=== PATIENT | female | born 1970 | race Caucasian/White ===

== ENCOUNTER → 2016-04-27 | Outpatient (CLI) | payer OTHER ==
[~2016-04-27] MED LIST: LITH300C PO; NO HOME MEDICATIONS
[2016-04-27 11:01] LABS: FREE T4 0.97 NG/DL (0.76-1.46)
[2016-04-27 11:02] LABS: LITHIUM LEVEL 1.28 MEQ/L (0.60-1.20)
== END | disposition home or self-care (01) ==
LOC: M LAB 09:21
PROVIDERS: ATTEND Nurse Practitioner Psychiatric/Mental Health
DX: Z51.81 Encounter for therapeutic drug level monitoring (principal); Z79.899 Other long term (current) drug therapy

== ENCOUNTER 2016-09-15 17:09 | Emergency (ER) | payer OTHER ==
[~2016-09-15] VITALS: Ht 157.5 cm; Wt 108.9 kg
[2016-09-15] MEDS ORDERED: METO-207 (17:24)
[2016-09-15] MEDS ORDERED: QUET1TAB7 (17:24)
[2016-09-15] MEDS ORDERED: VITA50003 (17:25)
[2016-09-15] MEDS ORDERED: TRIA1CR (17:25)
[2016-09-15] MEDS ORDERED: GABA-282 (17:25)
[2016-09-15] MEDS ORDERED: CITA40TA4 (17:25)
[2016-09-15] MEDS ORDERED: LEVO50TA5 (17:25)
[2016-09-15] MEDS ORDERED: LITH600C (17:25)
[2016-09-15] MEDS ORDERED: LITH150C (17:25)
[2016-09-15 18:30] LABS: BASO % 0.3 % (0.0-1.0); EOS # 0.4 K/mm3 (0.0-0.50); EOS % 3.6 % (0.0-3.0); LARGE UNSTAINED CELL # 0.2 K/mm3 (0.0-0.4); LARGE UNSTAINED CELL % 1.6 % (0.0-4.0); LYMPH # 2.2 K/mm3 (1.5-4.5); LYMPH % 19.2 % (24.0-44.0); MEAN CORPUSCULAR HGB CONC 33.3 g/dl (32.0-36.5); MEAN CORPUSCULAR VOLUME 87.1 fl (80.0-96.0); MONO # 0.5 K/mm3 (0.0-0.8); MONO % 4.8 % (0.0-5.0); NEUTROPHILS # 7.4 K/mm3 (1.8-7.7); NEUTROPHILS % 70.6 % (36.0-66.0); PLATELET COUNT, AUTOMATED 315 k/mm3 (150-450); RED CELL DISTRIBUTION WIDTH 13.1 % (11.5-14.5); WHITE BLOOD COUNT 10.5 K/mm3 (4.0-10.0)
[2016-09-15] MEDS ORDERED: PANTOPRAZOLE 40MG TAB (PROTONIX) PO ONE (18:30)
[2016-09-15] MEDS ORDERED: ONDANSETRON 4MG/2ML VIAL (J2405) IV ONE (18:30)
[2016-09-15] MEDS ORDERED: NS 500 ML IV ONE (18:30)
[2016-09-15 18:38] LABS: ALBUMIN 3.8 GM/DL (3.2-5.2); ALBUMIN/GLOBULIN RATIO 0.97 (1.00-1.93); ALKALINE PHOSPHATASE 77 U/L (45-117); ALT/SGPT 33 U/L (12-78); ANION GAP 6 MEQ/L (8-16); AST/SGOT 24 U/L (15-37); BILIRUBIN,DIRECT 0.2 MG/DL (0.0-0.2); BILIRUBIN,TOTAL 0.9 MG/DL (0.2-1.0); BLOOD UREA NITROGEN 11 MG/DL (7-18); CALCIUM LEVEL 9.1 MG/DL (8.5-10.1); CARBON DIOXIDE LEVEL 26 MEQ/L (21-32); CHLORIDE LEVEL 106 MEQ/L (98-107); CREATININE FOR GFR 0.88 MG/DL (0.55-1.02); GLOMERULAR FILTRATION RATE > 60.0 (>58); GLUCOSE, FASTING 102 MG/DL (70-105); POTASSIUM SERUM 3.7 MEQ/L (3.5-5.1); SODIUM LEVEL 138 MEQ/L (136-145); TOTAL PROTEIN 7.7 GM/DL (6.4-8.2)
[2016-09-15] MEDS ORDERED: ISOVUE-370 76% 100ML VIAL (Q9967) As Ordered ONE (18:39)
[2016-09-15] MEDS ORDERED: MORPHINE 4 MG/ML 1ML SYRINGE IV ONE (18:45)
--- NOTE | 2016-09-15 19:08 | REP ---
Chest one-view HISTORY: Chest pain Comparison: 11/27/2015 The lungs are clear. The heart is normal in size. The pulmonary vasculature is normal in appearance. Impression: No acute disease. Signed by Elvis Khan MD 09/15/2016 06:59 P
--- NOTE | 2016-09-15 19:10 | REPUSA ---
History: R/o PE. Comparison: No prior CTA of the chest available Technique: A CT-pulmonary angiogram was performed. A dose of intravenous contrast was administered. A xial images were displayed, as were sagittal and coronal reconstructions. A 3-D model was also render ed. Exam DLP: Findings: No CT evidence of pulmonary embolism is identified. There is no evidence of thoracic aortic aneurysm or dissection. No air space consolidation is identified in the lungs. There is no evidence of pulmonary edema. No pa thologically enlarged hilar or mediastinal lymph nodes are identified. No significant pleural or judy cardial fluid collection is seen. There is no evidence of pneumothorax. Mild degenerative changes are noted in the spine. The included portion of the upper abdomen does not show significant abnormality. Impression: No evidence of pulmonary embolism is identified.
[2016-09-15] MEDS ORDERED: KETOROLAC 30 MG/ML VIAL (J1885) IV ONE (19:30)
[2016-09-15 21:09] VITALS: BP 139/80
--- NOTE | 2016-09-16 08:22 | ECGEPIP ---
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
--- NOTE | 2016-09-16 08:23 | ECGEPIP ---
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
== END 2016-09-15 21:37 | disposition home or self-care (01) ==
LOC: M ED 18:11
DX: R07.9 Chest pain, unspecified (principal); M54.9 Dorsalgia, unspecified; I10 Essential (primary) hypertension; G62.9 Polyneuropathy, unspecified; M47.9 Spondylosis, unspecified; M17.0 Bilateral primary osteoarthritis of knee; M16.0 Bilateral primary osteoarthritis of hip; Z79.899 Other long term (current) drug therapy; Z88.0 Allergy status to penicillin; Z88.8 Allergy status to other drugs, medicaments and biological substances

== ENCOUNTER → 2016-10-27 | Outpatient (REF) | payer OTHER ==
[~2016-10-27] MED LIST changes: +CITA40TA4; +GABA-282; +LEVO50TA5; +LITH150C; +LITH600C; +METO1TAB7; +QUET1TAB7; +TRIA1CR; +VITA1CAP40
[2016-10-27 12:17] LABS: ALBUMIN 3.6 GM/DL (3.2-5.2); ALBUMIN/GLOBULIN RATIO 1.03 (1.00-1.93); ALKALINE PHOSPHATASE 70 U/L (45-117); ALT/SGPT 21 U/L (12-78); ANION GAP 7 MEQ/L (8-16); AST/SGOT 12 U/L (15-37); BILIRUBIN,TOTAL 0.4 MG/DL (0.2-1.0); BLOOD UREA NITROGEN 20 MG/DL (7-18); CALCIUM LEVEL 9.2 MG/DL (8.5-10.1); CARBON DIOXIDE LEVEL 26 MEQ/L (21-32); CHLORIDE LEVEL 106 MEQ/L (98-107); CHOLESTEROL LEVEL 139 MG/DL (<200); CREATININE FOR GFR 0.97 MG/DL (0.55-1.02); FREE T4 1.12 NG/DL (0.76-1.46); GLOMERULAR FILTRATION RATE > 60.0 (>58); GLUCOSE, FASTING 105 MG/DL (70-105); POTASSIUM SERUM 4.5 MEQ/L (3.5-5.1); SODIUM LEVEL 139 MEQ/L (136-145); TOTAL PROTEIN 7.1 GM/DL (6.4-8.2); TRIGLYCERIDES LEVEL 129 MG/DL (<150)
== END ==
LOC: M SFHCPLAZ 10:02
PROVIDERS: ATTEND Family Medicine
DX: I10 Essential (primary) hypertension (principal); E03.9 Hypothyroidism, unspecified

== ENCOUNTER → 2016-11-19 | Outpatient (CLI) | payer OTHER ==
--- NOTE | 2016-11-22 08:40 | REP ---
MRI lumbar spine without contrast: History: Right lumbar radiculopathy. No known injury. Back pain and right lower extremity pain. Comparison lumbar spine radiographs are from March 20, 2004. Technique: Sagittal and axial T1 and T2-weighted scans are acquired in the usual fashion with and without fat saturation. Sequences include spin echo, turbo spin-echo, and STIR imaging sequences. MRI findings: No extra spinal abnormality is seen. Lumbar vertebral body heights are preserved. Cortical and medullary bone signal intensity are normal. There are mild degenerative disc changes at L3-4, L1-2, and T12-L1 and T11-T12. The conus medullaris terminates at T12-L1 and is unremarkable. Normal caliber aorta is seen. Axial and sagittal images at L1-2, L2-3, L3-4 show no significant abnormality. At L4-5, there is moderate bilateral osteoarthritic facet hypertrophy. No disc herniation or central canal stenosis is seen. No neural foraminal encroachment. At L5-S1, there is also moderate bilateral facet osteoarthritis. No other finding. Impression: Bilateral facet joint osteoarthritis and L4-5 and L5-S1. Minimal degenerative disc changes in the upper lumbar spine. Otherwise negative. Signed by Aaron Mars MD 11/22/2016 10:15 A
== END ==
LOC: M RAD 17:52
PROVIDERS: ATTEND Family Medicine
DX: M54.16 Radiculopathy, lumbar region (principal); M43.06 Spondylolysis, lumbar region; M43.07 Spondylolysis, lumbosacral region; M51.36 Other intervertebral disc degeneration, lumbar region

== ENCOUNTER → 2016-12-20 | Outpatient (REF) | payer OTHER ==
[2016-12-23 14:17] LABS: BENZODIAZEPINES, URINE SCREEN Negative ng/mL (Cutoff=200); METHADONE, URINE SCREEN Negative ng/mL (Cutoff=300); pH, URINE 5.2 (4.5-8.9)
== END ==
LOC: M SFHCPLAZ 02:00
PROVIDERS: ATTEND Family Medicine
DX: Z51.81 Encounter for therapeutic drug level monitoring (principal); Z79.899 Other long term (current) drug therapy

== ENCOUNTER 2017-02-27 04:46 | Inpatient (IN) | payer OTHER, SELFPAY ==
[~2017-02-27] VITALS: Ht 160 cm; Wt 123.6 kg
[2017-02-27] MEDS ORDERED: ONDANSETRON 4MG/2ML VIAL (J2405) IV ONE (05:15)
[2017-02-27] MEDS ORDERED: NS 1,000 ML IV ONE (05:15)
[2017-02-27] MEDS: MORPHINE 4 MG/ML 1ML SYRINGE IV PRN ×2 (05:30→07:18)
[2017-02-27 06:04] LABS: ALBUMIN 3.7 GM/DL (3.2-5.2); ALBUMIN/GLOBULIN RATIO 1.06 (1.00-1.93); ALKALINE PHOSPHATASE 69 U/L (45-117); ALT/SGPT 37 U/L (12-78); ANION GAP 10 MEQ/L (8-16); AST/SGOT 28 U/L (7-37); BILIRUBIN,DIRECT 0.1 MG/DL (0.0-0.2); BILIRUBIN,TOTAL 0.5 MG/DL (0.2-1.0); BLOOD UREA NITROGEN 12 MG/DL (7-18); CARBON DIOXIDE LEVEL 22 MEQ/L (21-32); CHLORIDE LEVEL 109 MEQ/L (98-107); CREATININE FOR GFR 1.09 MG/DL (0.55-1.02); GLUCOSE, FASTING 136 MG/DL (70-105); POTASSIUM SERUM 4.3 MEQ/L (3.5-5.1); SODIUM LEVEL 141 MEQ/L (136-145); TOTAL PROTEIN 7.2 GM/DL (6.4-8.2)
[2017-02-27 06:10] LABS: BASO % 0.3 % (0.0-1.0); EOS # 0.4 10^3/uL (0.0-0.50); EOS % 4.2 % (0.0-3.0); IMMATURE GRANULOCYTE % 0.6 % (0-0); LYMPH # 1.7 10^3/uL (1.5-4.5); LYMPH % 17.5 % (24.0-44.0); MEAN CORPUSCULAR HEMOGLOBIN 28.8 pg (27.0-33.0); MEAN CORPUSCULAR VOLUME 87.3 fl (80.0-96.0); MONO # 0.6 10^3/uL (0.0-0.8); MONO % 5.6 % (0.0-5.0); NEUTROPHILS % 71.8 % (36.0-66.0); PLATELET COUNT, AUTOMATED 264 10^3/uL (150-450); RED CELL DISTRIBUTION WIDTH 12.8 % (11.5-14.5); WHITE BLOOD COUNT 9.8 10^3/uL (4.0-10.0)
[2017-02-27] MEDS ORDERED: ISOVUE-370 76% 100ML VIAL (Q9967) As Ordered ONE (06:17)
[2017-02-27 06:18] LABS: LITHIUM LEVEL 0.57 MEQ/L (0.60-1.20)
[2017-02-27] MEDS ORDERED: NITROGLYCERIN 0.4 MG SUBL TABLET SL PRN (06:30)
[2017-02-27] MEDS ORDERED: ASPIRIN 81 MG CHEW TABLET PO ONE (06:30)
--- NOTE | 2017-02-27 08:00 | REPUSA ---
CLINICAL HISTORY: Abdominal pain. TECHNIQUE: Multiple axial, sagittal and coronal CT images were obtained through the abdomen and pelvi s after administration of intravenous contrast material. COMMENTS: The liver is moderately enlarged with decreased attenuation without mass or defect. There is no intra or extrahepatic biliary ductal dilatation. The spleen is normal. The gallbladder is significantly di stended secondary to impacted stone in its neck. Diffuse thickening, enhancement of the wall of the g allbladder with surrounding inflammatory fat stranding. The pancreas is of normal contour and attenua tion characteristics. There is no evidence of adrenal mass. Both kidneys demonstrate prompt and equal nephrograms. The kidneys are normal in size, shape and conf iguration. There is no evidence of renal or ureteral mass. No renal or ureteral calculi are identifie d. There is no hydroureter or hydronephrosis. No evidence for appendicitis. There is no bowel wall thickening. No evidence for small or large heriberto l obstruction. There is no evidence of abdominal ascites or lymphadenopathy. Thickened bladder. There is no evidence of intrinsic or extrinsic bladder mass. There is no pelvic ascites or lymphadeno jamil. Images of the lung bases show no evidence of pleural or parenchymal mass. There are no pleural effusi ons. The bony structures are free of lytic or blastic lesions. IMPRESSION: Hepatomegaly with fatty infiltration. Acute calculus cholecystitis. Secondary impingement on the adjacent aspect of the first portion of the duodenum. Findings are secon luiza to the significant distention of the gallbladder and edema of its wall/impacted stone at its nec k. No associated fistula between the duodenum and the inflamed gallbladder. Diffusely thickened bladder, probably cystitis. Thank you for your kind referral of this patient.
--- NOTE | 2017-02-27 08:00 | REPUSA ---
CLINICAL HISTORY: Pain, exclude PE. TECHNIQUE: Multiple incremental axial, coronal and oblique images are obtained from the thoracic inle t to the upper abdomen. Intravenous contrast material was administered as per pulmonary embolism prot ocol. COMMENTS: The heart is moderately enlarged. Bilateral multifocal air trapping in the lung bases. There is excellent opacification of pulmonary arterial system without evidence for pulmonary embolism . Aorta is of normal caliber without evidence for dissection or aneurysm. There is no evidence of pleural or parenchymal mass. There are no pleural effusions. There is no evid ence of hilar or mediastinal lymphadenopathy. Images of the upper abdomen demonstrate no evidence of adrenal mass. The bony structures are free of lytic or blastic lesions. IMPRESSION: No evidence for pulmonary embolism. Cardiomegaly. Bilateral multifocal air trapping in the lung bases. Thank you for your kind referral of this patient.
[2017-02-27] MEDS ORDERED: MORPHINE 2 MG/ML 1ML SYRINGE IV ONE (09:00)
[2017-02-27] MEDS ORDERED: DRIS50002 PO (09:58)
[2017-02-27] MEDS ORDERED: METO1TAB33 PO (09:58)
[2017-02-27] MEDS ORDERED: LEVO50TA45 PO (09:58)
[2017-02-27] MEDS ORDERED: LITH150C PO (09:58)
[2017-02-27] MEDS ORDERED: QUET1TAB7 PO (09:58)
[2017-02-27] MEDS ORDERED: LITH300T2 PO (09:58)
[2017-02-27] MEDS ORDERED: GABA-282 PO (09:58)
[2017-02-27] MEDS ORDERED: CELE40TA PO (09:58)
--- NOTE | 2017-02-27 10:23 | REP ---
RIGHT UPPER QUADRANT ULTRASOUND: Real-time sonographic evaluation of the right upper quadrant performed. Gallbladder is distended and there is a 2.3 cm gallstone lodged in the neck of the gallbladder which is not mobile. There is no significant gallbladder wall thickening. No pericholecystic fluid is seen. The common bile duct could not be visualized. No gross intrahepatic biliary dilatation is seen. There appears to be diffuse fibrofatty infiltration of the liver, limiting evaluation for underlying mass. Pancreas could not be visualized due to overlying bowel gas. Right kidney demonstrates no hydronephrosis or nephrolithiasis with normal size at 13.6 cm in length. IMPRESSION: Moderate distended gallbladder with a 2.3 cm gallstone lodged in the neck of the gallbladder, non-mobile. No gallbladder wall thickening or free fluid. Common bile duct could not be visualized. Signed by Rafael Hemphill MD 02/27/2017 05:30 P
[2017-02-27] MEDS ORDERED: ONDANSETRON 4MG/2ML VIAL (J2405) IV PRN (10:30)
[2017-02-27] MEDS ORDERED: MORPHINE 4 MG/ML 1ML SYRINGE IV ONE (10:30)
[2017-02-27] MEDS ORDERED: MOM 30ML SUSPENSION UDC PO PRN (10:30)
[2017-02-27] MEDS ORDERED: MORPHINE 2 MG/ML 1ML SYRINGE IV PRN (10:30)
[2017-02-27] MEDS ORDERED: ACETAMINOPHEN TAB 650MG DOSE (2X325MG) PO PRN (10:30)
[2017-02-27] MEDS: LR 1,000 ML IV SCH ×2 (10:50→12:35)
[2017-02-27] MEDS: NORCO, ANEXSIA 5/325MG TABLET (HYDROcodone/ACETAMINOPHEN) PO PRN ×2 (11:08→18:59)
[2017-02-27 12:00] VITALS: BP 132/61
[2017-02-27] MEDS: CLINDAMYCIN 600 MG in APPROPRIATE DILUENT 1 EA IV SCH (12:00)
[2017-02-27] MEDS: HEPARIN SOD (PORCINE) 5000 UNITS/ML VIAL SC SCH ×2 (12:44→21:51)
[2017-02-27] MEDS: PANTOPRAZOLE 40MG INJ (PROTONIX) (C9113) IV SCH (12:44)
[2017-02-27 14:00] VITALS: BP 109/58
--- NOTE | 2017-02-27 18:21 | HPE ---
DATE OF ADMISSION: 02/27/2017 REASON FOR CONSULTATION: Abdominal pain. HISTORY OF PRESENT ILLNESS: The patient is a 46-year-old female who developed sudden onset of epigastric abdominal pain radiating to her back that started around 3 o'clock this morning. She came into the emergency room for evaluation. She was originally worked up for chest pain which was all negative. CT of the abdomen showed dilated gallbladder with a large stone in it which was confirmed with an ultrasound. This stone is lodged in the neck of the gallbladder and is causing some compression of the duodenum. She had some nausea and vomiting prior to coming to the hospital. Denies any fevers or chills. No changes in bowel or bladder movements. She had a pain in her gallbladder about 10 years ago that was never treated and she has not had any other symptoms up until the last 24 hours. She denies any recent travel or trauma and no problems with acid reflux or heartburn. PAST MEDICAL HISTORY: Positive for hypertension, bipolar disease, anxiety and depression. PAST SURGICAL HISTORY: Positive for three sections and a tubal ligation. ALLERGIES: AMLODIPINE, PENICILLIN, PENICILLIN CROSS REACTORS. HOME MEDICATIONS: Please see medication reconciliation. SOCIAL HISTORY: Denies drug, alcohol, tobacco usage. FAMILY HISTORY: Noncontributory. REVIEW OF SYSTEMS: Pertinent positives and negatives as stated in the HPI. PHYSICAL EXAMINATION: GENERAL: Alert and oriented times three. No acute stress. VITAL SIGNS: Temperature 98.9, pulse 77, respirations 18, blood pressure 185/92, pulse oximetry 98% on room air. HEENT: Pupils equal, round, react to light and accommodation. HEART: S1, S2, regular rate and rhythm. LUNGS: Clear to auscultation bilaterally. ABDOMEN: Soft, tender to palpation right upper quadrant. Localized guarding, no rebounding or rigidity. Bowel sounds positive. EXTREMITIES: No clubbing, cyanosis or edema. LABORATORY DATA: White count 9.8, hemoglobin 14.3, potassium 4.3, direct bilirubin 0.1, AST 28, ALT 37 alkaline phosphatase 69, lipase 179. IMAGING STUDIES: CT abdomen and pelvis shows signs of acute calculus cholecystitis with significant distension of the gallbladder with a large greater than 2 cm stone in the neck of the gallbladder which is resulting in some secondary impingement of the first portion of duodenum. ASSESSMENT/PLAN: The patient is a 46-year-old female with acute calculus cholecystitis. RECOMMENDATION: At this time is to admit her overnight, keep her on some IV fluids and antibiotics, regular diet for today, will keep her nothing by mouth after midnight and will plan for cholecystectomy as an add on case tomorrow morning. I have discussed this in detail with the patient. She is fully aware of her condition and is agreeable to stay. As long as everything goes well, we will plan on discharge home tomorrow following her surgery.
--- NOTE | 2017-02-27 21:41 | ECGEPIP ---
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
--- NOTE | 2017-02-27 21:41 | ECGEPIP ---
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
[2017-02-27] MEDS: GABAPENTIN 300 MG CAP PO SCH (21:49)
[2017-02-27] MEDS: LITHIUM CARBONATE 150 MG CAP PO SCH (21:49)
[2017-02-27] MEDS: QUEtiapine FUMARATE 25 MG TAB PO SCH (21:49)
[2017-02-27] MEDS: SENOKOT S TAB PO SCH (21:49)
[2017-02-27 22:00] VITALS: BP 140/76
[2017-02-28] MEDS: CLINDAMYCIN 600 MG in APPROPRIATE DILUENT 1 EA IV SCH ×3 (00:04→23:41)
[2017-02-28] MEDS: LR 1,000 ML IV SCH ×3 (02:20→13:22)
[2017-02-28] MEDS: LEVOTHYROXINE 50MCG TABLET (0.05MG) PO SCH (05:24)
[2017-02-28 06:00] VITALS: BP 144/80
[2017-02-28] MEDS: HEPARIN SOD (PORCINE) 5000 UNITS/ML VIAL SC SCH ×4 (06:00→20:47)
[2017-02-28] MEDS: NORCO, ANEXSIA 5/325MG TABLET (HYDROcodone/ACETAMINOPHEN) PO PRN ×3 (06:11→22:21)
[2017-02-28 06:44] LABS: MEAN CORPUSCULAR HEMOGLOBIN 28.5 pg (27.0-33.0); MEAN CORPUSCULAR HGB CONC 33.1 g/dl (32.0-36.5); MEAN CORPUSCULAR VOLUME 86.3 fl (80.0-96.0); PLATELET COUNT, AUTOMATED 233 10^3/uL (150-450); RED CELL DISTRIBUTION WIDTH 12.7 % (11.5-14.5); WHITE BLOOD COUNT 8.8 10^3/uL (4.0-10.0)
[2017-02-28 07:04] LABS: ALBUMIN 3.2 GM/DL (3.2-5.2); ALBUMIN/GLOBULIN RATIO 0.86 (1.00-1.93); ALKALINE PHOSPHATASE 72 U/L (45-117); ALT/SGPT 64 U/L (12-78); ANION GAP 7 MEQ/L (8-16); AST/SGOT 48 U/L (7-37); BILIRUBIN,TOTAL 0.8 MG/DL (0.2-1.0); BLOOD UREA NITROGEN 6 MG/DL (7-18); CALCIUM LEVEL 8.6 MG/DL (8.5-10.1); CARBON DIOXIDE LEVEL 28 MEQ/L (21-32); CHLORIDE LEVEL 104 MEQ/L (98-107); CREATININE FOR GFR 0.79 MG/DL (0.55-1.02); GLOMERULAR FILTRATION RATE > 60.0 (>58); GLUCOSE, FASTING 119 MG/DL (70-105); MAGNESIUM LEVEL 1.9 MG/DL (1.8-2.4); POTASSIUM SERUM 3.8 MEQ/L (3.5-5.1); SODIUM LEVEL 139 MEQ/L (136-145); TOTAL PROTEIN 6.9 GM/DL (6.4-8.2)
[2017-02-28] MEDS: PANTOPRAZOLE 40MG INJ (PROTONIX) (C9113) IV SCH (08:38)
[2017-02-28] MEDS: METOPROLOL SUCC (TopROL XL) 100MG *XL* TAB PO SCH (08:39)
[2017-02-28] MEDS: LITHIUM CARBONATE 150 MG CAP PO SCH ×2 (08:39→20:45)
[2017-02-28] MEDS: CitaloPRAM (CeleXA) 20 MG TAB PO SCH (08:39)
[2017-02-28] MEDS: GABAPENTIN 300 MG CAP PO SCH ×3 (08:39→20:44)
[2017-02-28] MEDS: SENOKOT S TAB PO SCH ×2 (08:39→20:47)
[2017-02-28] MEDS ORDERED: BUPIVACAINE/EPIN 0.25% 30 ML VIAL As Ordered ONE (13:39)
[2017-02-28] MEDS ORDERED: PROPOFOL 200 MG/20 ML VIAL As Ordered ONE (16:10)
[2017-02-28] MEDS ORDERED: MIDAZOLAM INJ 2 MG/2 ML VIAL (J2250) As Ordered ONE (16:11)
[2017-02-28] MEDS ORDERED: fentaNYL 100 MCG/2 ML INJECTION (J3010) As Ordered ONE ×2 (16:11→18:13)
[2017-02-28] MEDS ORDERED: dexameTHASONE 4 MG/ML 1ML VIAL (J1100) As Ordered ONE (17:02)
[2017-02-28] MEDS ORDERED: ONDANSETRON 4MG/2ML VIAL (J2405) As Ordered ONE (17:24)
[2017-02-28] MEDS ORDERED: GLYCOPYRROLATE INJ 0.2 MG/ML 2 ML VIAL As Ordered ONE (17:24)
[2017-02-28] MEDS ORDERED: NEOSTIGMINE 10 MG/10 ML VIAL (J2710) As Ordered ONE (17:24)
[2017-02-28] MEDS ORDERED: ROCURONIUM BROMIDE 50 MG/5 ML VIAL/SYRINGE As Ordered ONE (17:38)
[2017-02-28] MEDS ORDERED: KETOROLAC 30 MG/ML VIAL (J1885) As Ordered ONE (18:29)
[2017-02-28] MEDS: KETOROLAC 30 MG/ML VIAL (J1885) IV PRN (18:38)
[2017-02-28] MEDS ORDERED: LR 1,000 ML IV SCH (18:45)
[2017-02-28] MEDS ORDERED: ONDANSETRON 4MG/2ML VIAL (J2405) IV PRN (18:45)
[2017-02-28] MEDS ORDERED: MORPHINE 2 MG/ML 1ML SYRINGE IV PRN (18:45)
[2017-02-28] MEDS ORDERED: fentaNYL 100 MCG/2 ML INJECTION (J3010) IV PRN (18:45)
--- NOTE | 2017-02-28 19:18 | RO ---
DATE OF PROCEDURE: 02/28/2017 PREPROCEDURE DIAGNOSIS: DIAGNOSIS: Acute calculous cholecystitis. POSTPROCEDURE DIAGNOSIS: Acute calculous cholecystitis. OPERATIVE PROCEDURE: Laparoscopic cholecystectomy. SURGEON: Rafael Feldman DO BRICK UNLOADER TENDER: None ANESTHESIA: General. ESTIMATED BLOOD LOSS: 20 mL COMPLICATIONS: None. INDICATION FOR PROCEDURE: The patient is a 46-year-old female presents with signs and symptoms consistent with acute cholecystitis. Due to an impacted stone of the neck of the gallbladder. Recommendation to proceed with laparoscopic, possible open cholecystectomy. Risks and benefits of the procedure not limited to but including bleeding, infection, hernia formation, damage to surrounding structures, need for further surgery were discussed in detail with the patient and informed consent was obtained and the procedure was planned. DESCRIPTION OF PROCEDURE: The patient brought back to operating room 6 after sufficient sedation and the abdomen was sterilely prepped and draped. Next, a time-out was done to confirm proper patient and proper procedure. Following that a stab incision made in left lower quadrant at Garcia's point. Veress needle was inserted and the abdomen was insufflated to 50 mmHg. Next, a 5 mm supraumbilical incision was made, 5 mm OptiVu port was used to gain access to the abdomen. Once the abdomen was entered, the Veress needle site was examined. There were no signs of any injury. An 11 mm port placed subxiphoid, two 5 mm ports in the upper quadrant. Gallbladder was opened at the fundus and aspirated due to its tension to make it easier to hold onto. After doing so, we were able to elevate the fundus of the gallbladder up in the air, carefully dissect down. The cystic duct and cystic artery were densely scarred in due to the large stone at the neck of the gallbladder. Once this stone was able to be gently moved out of the way, I was able to dissect out the cystic duct and cystic artery. Once they are both identified, they are both doubly clipped and cut. Gallbladder was then removed from gallbladder fossa using electrocautery. Once it was removed, this was taken out through the 11 mm port site in a 10 mm EndoCatch bag. Next, the electrocautery was used to help control some bleeding at the liver bed. 3 grams of Luc was also placed to make sure that the bleeding was all well controlled. A #19-Persian Kenneth drain was then placed in the gallbladder fossa, brought out through the right-sided skin incision. The rest of the ports were then removed. Skin incisions were closed #4-0 Vicryl subcuticular sutures. Drain was sutured in place with #2-0 silk. Abdomen was then cleaned and dried. Steri-Strips, 4x4 and tape were applied thus ending procedure.
[2017-02-28 20:15] VITALS: BP 134/67
[2017-02-28] MEDS: QUEtiapine FUMARATE 25 MG TAB PO SCH (20:44)
[2017-02-28 21:15] VITALS: BP 133/62
[2017-02-28 22:15] VITALS: BP 132/71
[2017-02-28 23:15] VITALS: BP 131/70
[2017-03-01] MEDS: LR 1,000 ML IV SCH ×2 (02:20→10:20)
[2017-03-01 03:15] VITALS: BP 128/72
[2017-03-01] MEDS: HEPARIN SOD (PORCINE) 5000 UNITS/ML VIAL SC SCH (05:41)
[2017-03-01] MEDS: LEVOTHYROXINE 50MCG TABLET (0.05MG) PO SCH (05:41)
[2017-03-01] MEDS: NORCO, ANEXSIA 5/325MG TABLET (HYDROcodone/ACETAMINOPHEN) PO PRN ×2 (05:42→13:43)
[2017-03-01 06:15] VITALS: BP 98/66
[2017-03-01 06:42] LABS: MEAN CORPUSCULAR HEMOGLOBIN 29.3 pg (27.0-33.0); MEAN CORPUSCULAR HGB CONC 33.2 g/dl (32.0-36.5); MEAN CORPUSCULAR VOLUME 88.4 fl (80.0-96.0); PLATELET COUNT, AUTOMATED 229 10^3/uL (150-450); WHITE BLOOD COUNT 10.9 10^3/uL (4.0-10.0)
[2017-03-01 07:00] LABS: ALBUMIN 3.1 GM/DL (3.2-5.2); ALBUMIN/GLOBULIN RATIO 1.03 (1.00-1.93); ALKALINE PHOSPHATASE 58 U/L (45-117); ALT/SGPT 70 U/L (12-78); ANION GAP 7 MEQ/L (8-16); AST/SGOT 59 U/L (7-37); BILIRUBIN,TOTAL 0.5 MG/DL (0.2-1.0); BLOOD UREA NITROGEN 9 MG/DL (7-18); CALCIUM LEVEL 8.4 MG/DL (8.5-10.1); CARBON DIOXIDE LEVEL 27 MEQ/L (21-32); CHLORIDE LEVEL 105 MEQ/L (98-107); CREATININE FOR GFR 0.91 MG/DL (0.55-1.02); GLOMERULAR FILTRATION RATE > 60.0 (>58); GLUCOSE, FASTING 126 MG/DL (70-105); POTASSIUM SERUM 4.3 MEQ/L (3.5-5.1); SODIUM LEVEL 139 MEQ/L (136-145); TOTAL PROTEIN 6.1 GM/DL (6.4-8.2)
[2017-03-01] MEDS: SENOKOT S TAB PO SCH (08:28)
[2017-03-01] MEDS: PANTOPRAZOLE 40MG INJ (PROTONIX) (C9113) IV SCH (08:28)
[2017-03-01] MEDS: LITHIUM CARBONATE 150 MG CAP PO SCH (08:28)
[2017-03-01] MEDS: CitaloPRAM (CeleXA) 20 MG TAB PO SCH (08:28)
[2017-03-01] MEDS: GABAPENTIN 300 MG CAP PO SCH (08:28)
[2017-03-01] MEDS: KETOROLAC 30 MG/ML VIAL (J1885) IV PRN (08:29)
[2017-03-01 08:35] VITALS: BP 132/69
[2017-03-01] MEDS: METOPROLOL SUCC (TopROL XL) 100MG *XL* TAB PO SCH (08:35)
[2017-03-01] MEDS ORDERED: SENN1TAB2 PO (09:18)
[2017-03-01] MEDS ORDERED: NORCOTAB PO (09:18)
[2017-03-01 10:00] VITALS: BP 113/60
[2017-03-01] MEDS: CLINDAMYCIN 600 MG in APPROPRIATE DILUENT 1 EA IV SCH (11:10)
[2017-03-01 14:00] VITALS: BP 133/69
--- NOTE | 2017-03-02 18:47 | DSES ---
DATE OF ADMISSION: 02/27/2017 DATE OF DISCHARGE: 03/01/2017 ADMISSION DIAGNOSIS: Acute calculus cholecystitis. DISCHARGE DIAGNOSIS: Acute calculus cholecystitis. HOSPITAL COURSE: Patient is 46-year-old female who presents with sudden onset of right upper quadrant abdominal pain that woke her from sleep in the morning of the . She came into emergency room and was found to have cholelithiasis with a large stone impacted the neck of the gallbladder. She was monitored overnight with IV fluids and was taken the operating room on the for laparoscopic cholecystectomy. She tolerated the procedure well. No complications. She did have a drain left in place at the end of the procedure which had minimal serosanguineous output. Postoperatively on the morning of she was doing well and breathing was well controlled using her home C-PAP and she was satting well on room air. Pain was controlled. She was tolerating diet without any nausea or vomiting. She was ambulating without any difficulty and she was discharged home. PLAN: Followup with me in the office in 1 week to have the drain removed. She had return to work that afternoon if she wants no lifting, pushing or pulling more 20 pounds and no baths for 5 days but she can shower as soon as she gets home.
[2017-03-03] MEDS ORDERED: VITAMIN D 50,000 UNITS CAPSULE (ERGOCALCIFEROL 1.25MG) PO SCH (09:00)
== END 2017-03-01 14:05 | disposition home or self-care (01) | DRG 263 ==
LOC: M ED 04:46 → M ED INP 10:20 → M MS5PR 11:50
PROVIDERS: ADMIT Surgery; ATTEND Surgery
PROC: 0FT44ZZ Resection of Gallbladder, Percutaneous Endoscopic Approach (ICD-10-PCS; principal; 2017-02-28 14:00)
DX: K80.00 Calculus of gallbladder with acute cholecystitis without obstruction (principal); I10 Essential (primary) hypertension; F31.9 Bipolar disorder, unspecified; F41.9 Anxiety disorder, unspecified; Z88.0 Allergy status to penicillin; Z79.899 Other long term (current) drug therapy

== ENCOUNTER → 2017-03-18 | Outpatient (REF) | payer OTHER, SELFPAY ==
[~2017-03-18] MED LIST changes: +CELE40TA PO; +DRIS50002 PO; +GABA-282 PO; +LEVO50TA45 PO; +LITH150C PO; +LITH300T2 PO; +METO1TAB33 PO; +NORCOTAB PO; +QUET1TAB7 PO; +SENN1TAB2 PO
== END ==
LOC: M LABDRAWP 11:51
PROVIDERS: ATTEND Nurse Practitioner Psychiatric/Mental Health
DX: Z51.81 Encounter for therapeutic drug level monitoring (principal); Z79.899 Other long term (current) drug therapy; E03.9 Hypothyroidism, unspecified

== ENCOUNTER → 2017-03-18 | Outpatient (REF) | payer OTHER ==
[2017-03-18 12:46] LABS: FREE T4 1.14 NG/DL (0.76-1.46)
== END ==
LOC: M SFHCPLAZ 08:26
PROVIDERS: ATTEND Family Medicine
DX: E03.9 Hypothyroidism, unspecified (principal)

== ENCOUNTER → 2017-05-09 | Outpatient (REF) | payer OTHER ==
[2017-05-11 14:14] LABS: HPV HYBRID CAPTURE II Positive (Negative)
== END ==
LOC: M SFHCPLAZ 12:33
DX: Z12.4 Encounter for screening for malignant neoplasm of cervix (principal)
CPT/HCPCS: 88142

== ENCOUNTER → 2017-06-06 | Outpatient (REF) | payer OTHER | LOC: M SFHCWAGY 14:45 | DX: R87.810 Cervical high risk human papillomavirus (HPV) DNA test positive (principal); R87.612 Low grade squamous intraepithelial lesion on cytologic smear of cervix (LGSIL) ==

== ENCOUNTER 2017-06-08 06:23 | Emergency (ER) | payer OTHER ==
[2017-06-08] MEDS: KETOROLAC 60 MG/2 ML VIAL (J1885) IM (07:48)
[2017-06-08] MEDS ORDERED: CelecoXIB (CeleBREX) 100 MG CAP PO (09:00)
== END 2017-06-08 08:47 | disposition home or self-care (01) ==
LOC: M ED 06:23
DX: M19.90 Unspecified osteoarthritis, unspecified site (principal); Z79.899 Other long term (current) drug therapy; Z88.0 Allergy status to penicillin; Z88.8 Allergy status to other drugs, medicaments and biological substances
CPT/HCPCS: J1885

== ENCOUNTER → 2017-09-15 | Outpatient (REF) | payer BC ==
[2017-09-15 18:45] LABS: LITHIUM LEVEL 0.54 MEQ/L (0.60-1.20)
== END ==
LOC: M LAB REF 17:10
DX: F31.9 Bipolar disorder, unspecified (principal)
CPT/HCPCS: 80178

== ENCOUNTER 2017-12-08 04:34 | Emergency (ER) | payer OTHER, BC ==
[2017-12-08] MEDS: TETRACAINE 0.5% OPHTH SOLN 4ML OD (05:15)
== END 2017-12-08 06:51 | disposition home or self-care (01) ==
LOC: M ED 04:34
DX: Z77.098 Contact with and (suspected) exposure to other hazardous, chiefly nonmedicinal, chemicals (principal); I10 Essential (primary) hypertension; Z79.899 Other long term (current) drug therapy; Z88.0 Allergy status to penicillin; Z88.8 Allergy status to other drugs, medicaments and biological substances
CPT/HCPCS: 99284

== ENCOUNTER 2018-05-28 14:55 | Emergency (ER) | payer BC, OTHER ==
[~2018-05-28] VITALS: Ht 160 cm; Wt 111.8 kg
[~2018-05-28 14:55] MED LIST changes: +CELE50CA PO; -DRIS50002 PO; +DRIS50003 PO; -GABA-282; -GABA-282 PO; +GABA-843; +GABA-843 PO; -VITA1CAP40; +VITA50005
[2018-05-28] MEDS ORDERED: ACET30TAB PO (16:54)
[2018-05-28] MEDS ORDERED: ACETAMINOPH W/CODEINE #3 TAB UD PO ONE (17:00)
[2018-05-28 17:03] VITALS: BP 157/71
--- NOTE | 2018-05-29 06:53 | REP ---
RIGHT TIBIA-FIBULA: 05/28/2018. Clinical history: Lower extremity pain after a fall on ice. Findings: Four views are provided. There are degenerative changes at the knee and less at the ankle. There is an Achilles insertional spur on the posterior calcaneus and there are prominent osteophytes of the patella articular margins and quadriceps insertion. There is no evidence of an acute fracture of the tibia or fibula. Some periosteal reaction or "tug" lesion suggested along the proximal medial tibia from prior chronic exertion. There is no destructive lesion. Impression: 1. No visible or displaced fracture, avulsion or destructive lesion. 2. Degenerative changes at the knee and ankle with heel spurs and quadriceps insertion spur on the patella. 3. Old periosteal reaction from prior chronic exertion or "tug" lesion. This is a benign finding. Electronically Signed by Troy Morley MD 05/29/2018 09:20 A
== END 2018-05-28 17:05 | disposition home or self-care (01) ==
LOC: M ED 14:55
DX: S80.11XA Contusion of right lower leg, initial encounter (principal); W00.9XXA Unspecified fall due to ice and snow, initial encounter; Y92.099 Unspecified place in other non-institutional residence as the place of occurrence of the external cause; Y93.9 Activity, unspecified; Y99.9 Unspecified external cause status; I10 Essential (primary) hypertension; Z87.442 Personal history of urinary calculi; F41.9 Anxiety disorder, unspecified; F32.9 Major depressive disorder, single episode, unspecified; Z87.891 Personal history of nicotine dependence; M17.11 Unilateral primary osteoarthritis, right knee; M77.31 Calcaneal spur, right foot; M25.761 Osteophyte, right knee; Z79.899 Other long term (current) drug therapy; Z88.0 Allergy status to penicillin; Z88.8 Allergy status to other drugs, medicaments and biological substances

== ENCOUNTER 2018-08-30 10:55 | Emergency (ER) | payer BC ==
[~2018-08-30] VITALS: Ht 160 cm; Wt 122.0 kg
[~2018-08-30 10:55] MED LIST changes: +ACET-716 PO; +HYDR-3715 PO; -NORCOTAB PO; -SENN1TAB2 PO; +SENN1TAB40 PO; +TRIA0.1C60; -TRIA1CR
[2018-08-30 12:58] LABS: BASO % 0.1 % (0.0-1.0); EOS # 0.6 10^3/uL (0.0-0.50); EOS % 5.5 % (0.0-3.0); HEMATOCRIT 46.3 % (36.0-47.0); LYMPH % 19.4 % (24.0-44.0); MEAN CORPUSCULAR HEMOGLOBIN 28.8 pg (27.0-33.0); MEAN CORPUSCULAR HGB CONC 32.4 g/dl (32.0-36.5); MONO # 0.6 10^3/uL (0.0-0.8); NEUTROPHILS # 7.2 10^3/uL (1.8-7.7); NEUTROPHILS % 68.6 % (36.0-66.0); PLATELET COUNT, AUTOMATED 276 10^3/uL (150-450); WHITE BLOOD COUNT 10.5 10^3/uL (4.0-10.0)
[2018-08-30 13:37] LABS: ALBUMIN 3.9 GM/DL (3.2-5.2); ALT/SGPT 35 U/L (12-78); BILIRUBIN,TOTAL 0.9 MG/DL (0.2-1.0); BLOOD UREA NITROGEN 12 MG/DL (7-18); CALCIUM LEVEL 8.8 MG/DL (8.5-10.1); CARBON DIOXIDE LEVEL 28 MEQ/L (21-32); CHLORIDE LEVEL 108 MEQ/L (98-107); CREATININE FOR GFR 1.02 MG/DL (0.55-1.30); FREE T4 1.15 NG/DL (0.76-1.46); GLOMERULAR FILTRATION RATE > 60.0 (>51); GLUCOSE, FASTING 103 MG/DL (70-100); LITHIUM LEVEL 0.89 MEQ/L (0.60-1.20); MAGNESIUM LEVEL 2.3 MG/DL (1.8-2.4); POTASSIUM SERUM 4.1 MEQ/L (3.5-5.1); SODIUM LEVEL 142 MEQ/L (136-145); TOTAL PROTEIN 7.7 GM/DL (6.4-8.2)
--- NOTE | 2018-08-30 14:31 | REP ---
Clinical: Dizziness . Comparison: None . Findings: The ventricles, sulci, and cisterns are normal in position and appearance. Hemphill-white differentiation is maintained. No acute intracranial hemorrhage, mass/mass effect, pathology or trauma/injury. No evidence for acute infarction. No extra-axial fluid collection. Calvarium is intact. Paranasal sinuses and mastoid air cells are clear. Impression: Normal noncontrast head CT. No evidence for acute intracranial pathology or trauma/injury. Electronically Signed by Ed rBush MD 08/30/2018 02:22 P
[2018-08-30 15:28] VITALS: BP 149/86
--- NOTE | 2018-08-31 07:18 | ECGEPIP ---
[facility] - ED Test Date: 2018-08-30 Pat Name: ARIANNA BEVERLY Department: Room: - Gender: Female Physiologist: skyla : 1970 Requested By: ZAINAB HARRINGTON PA-C Order Number: [id number] Reading MD: Rob Pollard Measurements Intervals [place] Rate: 76 P: 44 [place]: 177 QRS: 57 QRSD: 94 T: 69 QT: 384 QTc: 434 Interpretive Statements SINUS RHYTHM NSTTW ABNORMALITIES SIMILAR TO 02/27/17 Electronically Signed on 08-31-2018 7:18:40 EDT by Rob Pollard
== END 2018-08-30 15:29 | disposition home or self-care (01) ==
LOC: M ED 10:55
DX: R42 Dizziness and giddiness (principal); I10 Essential (primary) hypertension; E03.9 Hypothyroidism, unspecified; F31.9 Bipolar disorder, unspecified; F33.9 Major depressive disorder, recurrent, unspecified; F41.9 Anxiety disorder, unspecified; G47.33 Obstructive sleep apnea (adult) (pediatric); Z79.899 Other long term (current) drug therapy; Z79.890 Hormone replacement therapy; Z88.0 Allergy status to penicillin; Z88.8 Allergy status to other drugs, medicaments and biological substances

== ENCOUNTER → 2018-12-07 | Outpatient (REF) | payer BC | LOC: M LAB REF 12:47 | PROVIDERS: ATTEND Nurse Practitioner Family | DX: F31.9 Bipolar disorder, unspecified (principal) ==

== ENCOUNTER → 2020-06-03 | Outpatient (REF) | payer OTHER ==
[~2020-06-03] MED LIST changes: +GABA-282; +GABA-282 PO; -GABA-843; -GABA-843 PO; -QUET1TAB7; -QUET1TAB7 PO; +QUET25TA3; +QUET25TA3 PO; +SENN-53 PO; -SENN1TAB40 PO
[2020-06-04 13:53] LABS: BASO % 0.4 % (0.0-1.0); EOS # 0.5 10^3/uL (0.0-0.5); EOS % 5.4 % (0.0-3.0); HEMATOCRIT 46.5 % (36.0-47.0); HEMOGLOBIN 14.9 g/dl (12.0-15.5); LYMPH # 2.2 10^3/uL (1.5-5.0); MEAN CORPUSCULAR HEMOGLOBIN 29.1 pg (27.0-33.0); MEAN CORPUSCULAR VOLUME 90.8 fl (80.0-96.0); MONO # 0.8 10^3/uL (0.0-0.8); MONO % 9.6 % (2.0-8.0); NEUTROPHILS % 58.2 % (36.0-66.0); PLATELET COUNT, AUTOMATED 250 10^3/uL (150-450); RED BLOOD COUNT 5.12 10^6/uL (4.00-5.40); WHITE BLOOD COUNT 8.5 10^3/uL (4.0-10.0)
[2020-06-04 14:01] LABS: BILIRUBIN,TOTAL 0.7 MG/DL (0.2-1.0); CALCIUM LEVEL 9.3 MG/DL (8.5-10.1); CHOLESTEROL RISK RATIO 4.146 (<5); CREATININE FOR GFR 1.16 MG/DL (0.55-1.30); FREE T4 1.12 NG/DL (0.76-1.46); GLOMERULAR FILTRATION RATE 52.4 (>51); POTASSIUM SERUM 4.5 MEQ/L (3.5-5.1); THYROID STIMULATING HORMONE 0.52 uIU/ML (0.358-3.740); TOTAL 25(OH) VITAMIN D 18.9 NG/ML (30.0-100.0); TOTAL PROTEIN 7.3 GM/DL (6.4-8.2)
[2020-06-04 14:09] LABS: HEMOGLOBIN A1c 5.1 %
== END ==
LOC: M SFHCADAM 15:26
PROVIDERS: ATTEND Physician Assistant
DX: E03.9 Hypothyroidism, unspecified (principal); R74.8 Abnormal levels of other serum enzymes; E66.01 Morbid (severe) obesity due to excess calories; Z12.31 Encounter for screening mammogram for malignant neoplasm of breast; F31.9 Bipolar disorder, unspecified; Z13.1 Encounter for screening for diabetes mellitus; I10 Essential (primary) hypertension

== ENCOUNTER → 2020-06-19 | Outpatient (CLI) | payer OTHER ==
--- NOTE | 2020-06-21 05:05 | ECWPNPC ---
PATIENT NAME: ARIANNA BABB : 1970 GENDER: FEMALE VISIT DATE: 06/19/2020 DISCHARGE DATE: 06/19/20 1149 VISIT LOCKED DATE TIME: PHYSICIAN: MARY ALTAMIRANO PHYSICIAN PAGER NO: ACTIVE RESOURCE: MARY ALTAMIRANO REASON FOR APPOINTMENT 1. 2 MONTH LOW BACK PAIN HISTORY OF PRESENT ILLNESS GENERAL: - 49-YEAR-OLD FEMALE IN FOR CHRONIC PAIN FOLLOW-UP. PATIENT FEELS THE MEDICATIONS ARE HELPFUL AND DENIES MED SIDE EFFECTS AT THIS TIME. SHE RATES HER PAIN CURRENTLY AT A 2/10 AND DESCRIBES IT INTERMITTENT SHARP AND SHOOTING. FALL RISK SCREENING: SCREENING : NO FALLS REPORTED IN THE LAST YEAR. PAIN SCREENING: PATIENT HAS A COMPLAINT OF ACUTE OR CHRONIC PAIN :YES LOCATION OF PAIN:BACK INTENSITY OF PAIN (SCALE OF 1 TO 10):2 WHAT DOES YOUR PAIN FEEL LIKE:INTERMITTENT, SHARP, SHOOTING DURATION:INTERMITTENT PAIN IS INCREASED BY:ACTIVITIES, PROLONGED STANDING PAIN IS DECREASED BY:USE OF PAIN MEDICATIONS, SITTING, OTHERS HOT BATH NURSING NOTE: -. PAIN CENTER INTAKE QUESTIONS: DO YOU HAVE A HISTORY OF MRSA? :NO DO YOU TAKE A BLOOD THINNERS? :NO DO YOU HAVE ANY BLEEDING DISORDERS? :NO ANY NEW NUMBNESS OR WEAKNESS IN YOUR LEGS OR ARMS? :NO ANY PACEMAKER,DEFIBRILLATOR, OR DORSAL COLUMN STIMULATOR? :NO DO YOU HAVE ANY RASHES OR OPEN SORES? :NO ARE YOU ALLERGIC TO IV DYE? :NO ARE YOU DIABETIC? :NO ANY NEW PROBLEMS WITH YOUR MEDICATIONS? :NO HAVE YOU RECEIVED A VACCINE IN THE PAST 30 DAYS? :YES IF SO WHAT VACCINE AND WHEN? FIRST COVID VACCINATION 05/10/2020 DO YOU PLAN TO RECEIVE A VACCINE IN THE NEXT 21 DAYS? :YES IF SO WHAT VACCINE AND WHEN? WAITING FOR SECOND COVID VACCINATION DO YOU NEED ANY PRESCRIPTION? :NO DO YOU TAKE ANY IMMUNOSUPPRESSIVE MEDICATIONS? :NO DO YOU HAVE ANY KIDNEY OR LIVER DISEASE? :NO IS THERE A CHANCE YOU COULD BE ? :NO ARE YOU BREAST FEEDING? :NO CURRENT MEDICATIONS TAKING GABAPENTIN 600 MG TABLET 1 CAPSULE ORALLY THREE TIMES A DAY TAKING TYLENOL 1 TAB ORAL DIRECTED TAKING WELLBUTRIN 75 MG TABLET 2 TABLETS ORALLY 300 MG ONCE A DAY TAKING ABILIFY 10 MG TABLET 1 TABLET ORALLY ONCE A DAY TAKING MAGNESIUM 250 MG TABLET 2 TABLET WITH A MEAL ORALLY ONCE A DAY TAKING MELOXICAM 15 MG TABLET 1 TABLET ORALLY ONCE A DAY TAKING METOPROLOL SUCCINATE 150MG ER 24 HOUR 1 CAPSULE ORALLY ONCE A DAY TAKING LEVOTHYROXINE SODIUM 50 MCG TABLET 1 TABLET IN THE MORNING ON AN EMPTY STOMACH ORALLY ONCE A DAY NOT-TAKING DOXYCYCLINE HYCLATE 100 MG TABLET 1 TABLET ORALLY ONCE A DAY NOT-TAKING LITHIUM CARBONATE 300 MG CAPSULE 1 CAPSULE IN AM, 2 CAPSULES IN PM ORALLY TWICE A DAY, NOTES: STOPPED A WEEK AGO NOT-TAKING LAMOTRIGINE 100 MG TABLET 1 TABLET ORALLY TWICE A DAY MEDICATION LIST REVIEWED AND RECONCILED WITH THE PATIENT PAST MEDICAL HISTORY LOW BACK PAIN - FOLLOW WITH PAIN CLINIC UPPER BACK PAIN HYPOTHYROIDISM HTN BIPOLAR MAURICIO ON CPAP HYDRADENITIS HPV VITAMIN D DEFICIENCY MORBID OBESITY 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 HYPERTENSION CHRONIC RIGHT LEG PAIN/ ?NEUROPATHY / ARTHRITIS IN BACK SUBCLINICAL HYPOTHYROIDISM ASCVD RISK 1.1% 10/2016 OSTEOARTHRITIS ALLERGIES PENICILLIN (FOR ALLERGIES USE ONLY): HIVES PENICILLIN (FOR ALLERGIES USE ONLY): HIVES - ALLERGY AMLODIPINE BESYLATE: ANGIOEDEMA - ALLERGY AMLODIPINE BESYLATE: ANGIOEDEMA - ALLERGY TRAMADOL: SOB, CRYING SPELLS - ALLERGY TRAMADOL HCL: CRYING - SIDE EFFECTS SURGICAL HISTORY TONSILECTOMY 20S-30S X3 C-SECTIONS ADENOIDS CHILDHOOD TONSILLECTOMY C SECTION 1986 GALLBLADDER REMOVAL C SECTION 1989 TUBAL LIGATION C SECTION 1992 GALLBLADDER 02/28/2017 COLPOSCOPY WITH MARKUS 06/06/17 TUBAL LIGATION 1992 SOCIAL HISTORY GENERAL: TOBACCO USE ARE YOU A:NONSMOKER ARE YOU A:FORMER SMOKER HOW LONG HAS IT BEEN SINCE YOU LAST SMOKED?> 10 YEARS LATEX QUESTIONNAIRE LATEX ALLERGY : HAVE YOU EVER DEVELOPED ANY TYPE OF REACTION AFTER HANDLING LATEX PRODUCTS SUCH RUBBER GLOVES, CONDOMS, DIAPHRAGMS, BALLOONS, SOCKS, OR UNDERWEAR?NO LATEX ALLERGY : HAVE YOU EVER DEVELOPED ANY TYPE OF REACTION DURING OR AFTER DENTAL APPOINTMENT, VAGINAL/RECTAL EXAMINATION, SURGICAL PROCEDURE, OR ANY OTHER EXPOSURE?NO LATEX RISK : HAVE YOU EVER HAD ANY DIFFICULTY BREATHING OR HIVES AFTER EATING OR HANDLING ANY FRUITS, OR VEGETABLES; SUCH KIWI, BANANAS, STONE FRUITS, OR CHESTNUTSNO LATEX RISK : DO YOU HAVE A PREVIOUS PERSONAL HISTORY OF MORE THAN NINE SURGERIES, SPINA BIFIDA, OR REPEATED CATHERIZATIONS? NO LATEX RISK : ARE YOU FREQUENTLY EXPOSED TO LATEX PRODUCTS IN YOUR OCCUPATION?NO DATE ASKED : 06/19/2020 ALCOHOL USE: NO. BMI CARE GOAL FOLLOW-UP ABOVE NORMAL BMI FOLLOW-UPGIVING ENCOURAGEMENT TO EXERCISE ALCOHOL SCREENING DID YOU HAVE A DRINK CONTAINING ALCOHOL IN THE PAST YEAR?NO DID YOU HAVE A DRINK CONTAINING ALCOHOL IN THE PAST YEAR?NO POINTS0 POINTS0 INTERPRETATIONNEGATIVE INTERPRETATIONNEGATIVE RECREATIONAL DRUG USE DRUG USE?NO DRUG USE?NO CAFFEINE CAFFEINE USE?YES 4 BEVERAGES DAILY SEXUAL HX HAD SEX IN THE LAST 12 MONTHS (VAGINAL, ORAL, OR ANAL)?YES WITHMEN ONLY PREVENTION STRATEGIES DISCUSSED:CONDOMS USE PROTECTION?NO HAVE YOU EVER HAD AN STD?NO HIV / HEP-C SCREENING HIV TEST OFFERED TO PATIENT:YES DATE OFFERED:10/27/2016 TEST ACCEPTED:NO HEP-C TEST OFFERED TO PATIENT:NO REASON:PATIENT DECLINED SHINTO [id number] MORMONISM LANGUAGE LANGUAGES SPOKEN:ARMENIAN EDUCATION LEVEL OF EDUCATION:NOT FINISHED COLLEGE LEARNING BARRIERS / SPECIAL NEEDS CHANGE FROM LAST VISIT?NO BARRIERS TO LEARNING?NO HEARING IMPAIRED?NO VISION IMPAIRED?YES :CORRECTIVE LENSES COGNITIVELY IMPAIRED?NO READINESS TO LEARN?YES LEARNING PREFERENCES?NO LEARNING CAPABILITIES PRESENT?YES EMOTIONAL BARRIERS?NO SPECIAL DEVICES?NO MARKETING OPERATIONS MANAGER NEEDED?NO DOMESTIC VIOLENCE DO YOU FEEL SAFE IN YOUR ENVIRONMENT?YES OCCUPATION: WILL BE WORKING AT [employer] IN [facility]. MARITAL STATUS: . - HAS THE PATIENT BEEN EDUCATED REGARDING HIS/HER PLAN OF CARE?YES HAS THE PATIENT BEEN EDUCATED REGARDING PAIN, THE RISK FOR PAIN, THE IMPORTANCE OF EFFECTIVE PAIN MANAGEMENT, AND THE PAIN ASSESSMENT PROCESS?YES ADVANCE DIRECTIVE ADVANCE DIRECTIVE DISCUSSED WITH PATIENT:YES HCP - [facility] H[facility]PITALIZATION/MAJOR DIAGNOSTIC PROCEDURE CHILD SURGERY RELATED [facility] REVIEW OF SYSTEMS CONSTITUTIONAL: ANY RECENT FEVER NO . CHILLS NO . WEIGHT CHANGE OF UNKNOWN REASONS NO . GASTROENTEROLOGY: NEW UNEXPLAINABLE CHANGES IN BOWEL CONTROL NO . CONSTIPATION NO . GENITOURINARY: ANY NEW CHANGE IN BLADDER CONTROL? NO . NEUROLOGY: NEW ONSET DIZZINESS OR NEUROLOGICAL CHANGES NOT MENTIONED NO . NEW NUMBNESS OR PAIN PATTERNS NOT MENTIONED AND PERTINENT TO TODAY'S VISIT NO . CARDIOLOGY: NEW CHEST PRESSURE NO . PATIENT DENIES NO . RESPIRATORY: UNEXPLAINABLE COUGH NO . NEW SHORTNESS OF BREATH NO . VITAL SIGNS WT 273.2 LBS, HT 52 IN, BMI 71.03 INDEX, BP 136/66 MM HG, HR 66 /MIN, RR 18 /MIN, TEMP 97.7 F, OXYGEN SAT % 96%, SAFE IN ENV? (Y/N) YES, NA INITIALS AW 1058, REVIEWED BY: CARLOS HOBBS MA. EXAMINATION GENERAL EXAMINATION: GENERALNO ACUTE DISTRESS, WELL NOURISHED AND HYDRATED. PSYCHAPPROPRIATE MOOD AND AFFECT . LUNGS:CLEAR TO AUSCULTATION BILATERALLY, NO WHEEZES, RHONCHI, RALES. HEART:NO MURMURS, REGULAR RATE AND RHYTHM. ASSESSMENTS INTERVERTEBRAL DISC DISORDERS WITH RADICULOPATHY, LUMBOSACRAL REGION - M51.17 (PRIMARY) [employer] (CURRENT) USE OF OPIATE ANALGESIC - Z79.891 TREATMENT INTERVERTEBRAL DISC DISORDERS WITH RADICULOPATHY, LUMBOSACRAL REGION LAB: URINE TEST GROUP MARCELLA HOBBS 06/19/2020 11:42:15 AM > LAST DOSE: GABAPENTIN 06/19/2020; HYDROCODONE 03/11/2020 NOTES: 49-YEAR-OLD FEMALE IN FOR CHRONIC PAIN FOLLOW-UP. GIVEN PRESENTING SYMPTOMS RECOMMENDED CONTINUATION CURRENT MEDICATION REGIMEN WITH FOLLOW-UP IN 3 MONTHS. PATIENT HAS EXPRESSED UNDERSTANDING OF AND WAS IN AGREEMENT WITH TREATMENT PLAN. GIVEN TIME TO ASK QUESTIONS AND EXPRESS CONCERNS. , ISTOP REGISTRY REVIEWED AND DEMONSTRATES COMPLLIANCE. (REF ) BRINGS IN MEDICATIONS WHICH IS APPROPRIATE FOR WHAT WAS DISPENSED. RECENT URINE TOXICOLOGY REVIEWED. NO UNAUTHORIZED MEDICATIONS. NO ILLICIT SUBSTANCES AND PRESCRIBED MEDICATIONS WERE PRESENT. PROCEDURE CODES FA211 ESTABILISHED PATIENT [facility] CHARGE DISPOSITION & COMMUNICATION FOLLOW UP 3 MONTHS (REASON: BACK PAIN) ELECTRONICALLY SIGNED BY WAN ELLINGTON ON 06/20/2020 AT 12:56 PM EST DISCLAIMER : THIS IS A VISIT SUMMARY EXTRACTED FROM THE [employer] CHART. IT IS NOT A COPY OF THE [employer] PROGRESS NOTE. VIOLET
== END ==
LOC: M PAIN 10:45
PROVIDERS: ATTEND Family Medicine
DX: M51.17 Intervertebral disc disorders with radiculopathy, lumbosacral region (principal); G89.29 Other chronic pain; E03.9 Hypothyroidism, unspecified; G47.33 Obstructive sleep apnea (adult) (pediatric); Z86.59 Personal history of other mental and behavioral disorders; Z87.891 Personal history of nicotine dependence; Z88.0 Allergy status to penicillin; Z88.5 Allergy status to narcotic agent; Z88.8 Allergy status to other drugs, medicaments and biological substances; E66.01 Morbid (severe) obesity due to excess calories; Z68.45 Body mass index [BMI] 70 or greater, adult; Z79.899 Other long term (current) drug therapy

== ENCOUNTER 2020-09-04 23:17 | Emergency (ER) | payer OTHER ==
[~2020-09-04] VITALS: Ht 160 cm; Wt 130.0 kg
[2020-09-04 23:18] VITALS: BP 167/81
[2020-09-04] MEDS ORDERED: OLAN2.5T25 PO (23:27)
[2020-09-04] MEDS ORDERED: DOXY100T2 PO (23:27)
[2020-09-04] MEDS ORDERED: MELO15TA28 PO (23:27)
== END 2020-09-05 01:18 | disposition left against medical advice (07) ==
LOC: M ED 23:17
DX: Z53.21 Procedure and treatment not carried out due to patient leaving prior to being seen by health care provider (principal)

== ENCOUNTER → 2020-10-15 | Outpatient (CLI) | payer OTHER ==
[~2020-10-15] MED LIST changes: +DOXY100T2 PO; +MELO15TA28 PO; +OLAN2.5T25 PO
[2020-10-15 09:54] LABS: BASO % 0.3 % (0.0-1.0); EOS # 0.4 10^3/uL (0.0-0.5); HEMATOCRIT 45.6 % (36.0-47.0); HEMOGLOBIN 15.2 g/dl (12.0-15.5); LYMPH # 2.3 10^3/uL (1.5-5.0); LYMPH % 29.7 % (24.0-44.0); MEAN CORPUSCULAR HEMOGLOBIN 29.4 pg (27.0-33.0); MEAN CORPUSCULAR HGB CONC 33.3 g/dl (32.0-36.5); MEAN CORPUSCULAR VOLUME 88.2 fl (80.0-96.0); MONO # 0.6 10^3/uL (0.0-0.8); MONO % 8.4 % (2.0-8.0); NEUTROPHILS # 4.3 10^3/uL (1.5-8.5); NEUTROPHILS % 55.8 % (36.0-66.0); PLATELET COUNT, AUTOMATED 223 10^3/uL (150-450); RED BLOOD COUNT 5.17 10^6/uL (4.00-5.40); WHITE BLOOD COUNT 7.6 10^3/uL (4.0-10.0)
[2020-10-15 10:33] LABS: ALBUMIN 4.2 GM/DL (3.2-5.2); BILIRUBIN,TOTAL 0.7 MG/DL (0.2-1.0); CALCIUM LEVEL 8.7 MG/DL (8.5-10.1); CREATININE FOR GFR 1.07 MG/DL (0.55-1.30); FREE T4 1.26 NG/DL (0.76-1.46); GLOMERULAR FILTRATION RATE 57.3 (>51); POTASSIUM SERUM 4.1 MEQ/L (3.5-5.1); THYROID STIMULATING HORMONE 1.67 uIU/ML (0.358-3.740); TOTAL PROTEIN 7.2 GM/DL (6.4-8.2)
== END ==
LOC: M WUC 08:35 → MERGE 08:35
PROVIDERS: ATTEND Psychiatry & Neurology Psychiatry
DX: F31.9 Bipolar disorder, unspecified (principal)

== ENCOUNTER → 2020-10-15 | Outpatient (CLI) | payer OTHER ==
--- NOTE | 2020-10-17 00:57 | ECWPNPC ---
PATIENT NAME: ARIANNA BABB : 1970 GENDER: FEMALE VISIT DATE: 10/15/2020 DISCHARGE DATE: 10/15/20932 VISIT LOCKED DATE TIME: PHYSICIAN: MARY ALTAMIRANO PHYSICIAN PAGER NO: ACTIVE RESOURCE: MARY ALTAMIRANO REASON FOR APPOINTMENT 1. LOW BACK PAIN HISTORY OF PRESENT ILLNESS GENERAL: HPI 50-YEAR-OLD FEMALE IN FOR CHRONIC PAIN FOLLOW-UP. SHE FEELS HER MEDICATIONS ARE HELPFUL AND DENIES MED SIDE EFFECTS AT THIS TIME. SHE RATES HER PAIN CURRENTLY AT A 0 OF 10.. -. FALL RISK SCREENING: SCREENING : NO FALLS REPORTED IN THE LAST YEAR. PAIN SCREENING: PATIENT HAS A COMPLAINT OF ACUTE OR CHRONIC PAIN :YES LOCATION OF PAIN:LOW BACK INTENSITY OF PAIN (SCALE OF 1 TO 10):0 WHAT DOES YOUR PAIN FEEL LIKE:OTHER STIFFNESS DURATION:INTERMITTENT PAIN IS INCREASED BY:OTHERS WEATHER PAIN IS DECREASED BY:USE OF PAIN MEDICATIONS NURSING NOTE: -. PAIN CENTER INTAKE QUESTIONS: DO YOU HAVE A HISTORY OF MRSA? :NO DO YOU TAKE A BLOOD THINNERS? :NO DO YOU HAVE ANY BLEEDING DISORDERS? :NO ANY NEW NUMBNESS OR WEAKNESS IN YOUR LEGS OR ARMS? :NO ANY PACEMAKER,DEFIBRILLATOR, OR DORSAL COLUMN STIMULATOR? :NO DO YOU HAVE ANY RASHES OR OPEN SORES? :NO ARE YOU ALLERGIC TO IV DYE? :NO ARE YOU DIABETIC? :NO ANY NEW PROBLEMS WITH YOUR MEDICATIONS? :NO HAVE YOU RECEIVED A VACCINE IN THE PAST 30 DAYS? :YES IF SO WHAT VACCINE AND WHEN? FIRST COVID VACCINATION 05/10/2020 DO YOU PLAN TO RECEIVE A VACCINE IN THE NEXT 21 DAYS? :YES IF SO WHAT VACCINE AND WHEN? WAITING FOR SECOND COVID VACCINATION DO YOU NEED ANY PRESCRIPTION? :NO NOT TOO SURE DO YOU TAKE ANY IMMUNOSUPPRESSIVE MEDICATIONS? :NO DO YOU HAVE ANY KIDNEY OR LIVER DISEASE? :NO IS THERE A CHANCE YOU COULD BE ? :NO ARE YOU BREAST FEEDING? :NO CURRENT MEDICATIONS TAKING TYLENOL 1 TAB ORAL DIRECTED TAKING WELLBUTRIN 75 MG TABLET 2 TABLETS ORALLY 300 MG ONCE A DAY TAKING ABILIFY 10 MG TABLET 1 TABLET ORALLY ONCE A DAY TAKING MAGNESIUM 250 MG TABLET 2 TABLET WITH A MEAL ORALLY ONCE A DAY TAKING LEVOTHYROXINE SODIUM 50 MCG TABLET 1 TABLET IN THE MORNING ON AN EMPTY STOMACH ORALLY ONCE A DAY TAKING GABAPENTIN 600 MG TABLET 1 CAPSULE ORALLY THREE TIMES A DAY TAKING MELOXICAM 15 MG TABLET 1 TABLET ORALLY ONCE A DAY TAKING METOPROLOL SUCCINATE ER 100 MG TABLET EXTENDED RELEASE 24 HOUR 1.5 TABLET ORALLY ONCE A DAY NOT-TAKING DOXYCYCLINE HYCLATE 100 MG TABLET 1 TABLET ORALLY ONCE A DAY NOT-TAKING LITHIUM CARBONATE 300 MG CAPSULE 1 CAPSULE IN AM, 2 CAPSULES IN PM ORALLY TWICE A DAY, NOTES: STOPPED A WEEK AGO NOT-TAKING LAMOTRIGINE 100 MG TABLET 1 TABLET ORALLY TWICE A DAY MEDICATION LIST REVIEWED AND RECONCILED WITH THE PATIENT PAST MEDICAL HISTORY MORBID OBESITY VITAMIN D DEFICIENCY MORBID (SEVERE) OBESITY DUE TO EXCESS CALORIES BODY MASS INDEX (BMI) OF 45.0-49.9 IN ADULT OTHER CHRONIC PAIN ARTHRITIS NOCTURNAL LEG CRAMPS ESSENTIAL HYPERTENSION SUBCLINICAL HYPOTHYROIDISM BIPOLAR 1 DISORDER BIPOLAR DISORDER, IN PARTIAL REMISSION, MOST RECENT EPISODE DEPRESSED ACQUIRED HYPOTHYROIDISM FIRST COVID VACCINATION 05/10/2020 2ND : 08/08/2020 ALLERGIES PENICILLIN (FOR ALLERGIES USE ONLY): HIVES PENICILLIN (FOR ALLERGIES USE ONLY): HIVES - ALLERGY AMLODIPINE BESYLATE: ANGIOEDEMA - ALLERGY AMLODIPINE BESYLATE: ANGIOEDEMA - ALLERGY TRAMADOL: SOB, CRYING SPELLS - ALLERGY TRAMADOL HCL: CRYING - SIDE EFFECTS SOCIAL HISTORY GENERAL: TOBACCO USE ARE YOU A:FORMER SMOKER HOW LONG HAS IT BEEN SINCE YOU LAST SMOKED?> 10 YEARS LATEX QUESTIONNAIRE LATEX ALLERGY : HAVE YOU EVER DEVELOPED ANY TYPE OF REACTION AFTER HANDLING LATEX PRODUCTS SUCH RUBBER GLOVES, CONDOMS, DIAPHRAGMS, BALLOONS, SOCKS, OR UNDERWEAR?NO LATEX ALLERGY : HAVE YOU EVER DEVELOPED ANY TYPE OF REACTION DURING OR AFTER DENTAL APPOINTMENT, VAGINAL/RECTAL EXAMINATION, SURGICAL PROCEDURE, OR ANY OTHER EXPOSURE?NO LATEX RISK : HAVE YOU EVER HAD ANY DIFFICULTY BREATHING OR HIVES AFTER EATING OR HANDLING ANY FRUITS, OR VEGETABLES; SUCH KIWI, BANANAS, STONE FRUITS, OR CHESTNUTSNO LATEX RISK : DO YOU HAVE A PREVIOUS PERSONAL HISTORY OF MORE THAN NINE SURGERIES, SPINA BIFIDA, OR REPEATED CATHERIZATIONS? NO LATEX RISK : ARE YOU FREQUENTLY EXPOSED TO LATEX PRODUCTS IN YOUR OCCUPATION?NO DATE ASKED : 10/15/2020 ALCOHOL USE: NO. RECREATIONAL DRUG USE DRUG USE?NO LANGUAGE LANGUAGES SPOKEN:WOLOF LEARNING BARRIERS / SPECIAL NEEDS CHANGE FROM LAST VISIT?NO BARRIERS TO LEARNING?NO HEARING IMPAIRED?NO VISION IMPAIRED?YES :CORRECTIVE LENSES COGNITIVELY IMPAIRED?NO READINESS TO LEARN?YES LEARNING PREFERENCES?NO LEARNING CAPABILITIES PRESENT?YES EMOTIONAL BARRIERS?NO SPECIAL DEVICES?YES :OTHER CPAP BACKFILLER NEEDED?NO REVIEW OF SYSTEMS CONSTITUTIONAL: ANY RECENT FEVER NO . CHILLS NO . WEIGHT CHANGE OF UNKNOWN REASONS NO . GASTROENTEROLOGY: NEW UNEXPLAINABLE CHANGES IN BOWEL CONTROL NO . CONSTIPATION NO . GENITOURINARY: ANY NEW CHANGE IN BLADDER CONTROL? NO . NEUROLOGY: NEW ONSET DIZZINESS OR NEUROLOGICAL CHANGES NOT MENTIONED NO . NEW NUMBNESS OR PAIN PATTERNS NOT MENTIONED AND PERTINENT TO TODAY'S VISIT NO . CARDIOLOGY: NEW CHEST PRESSURE NO . PATIENT DENIES NO . RESPIRATORY: UNEXPLAINABLE COUGH NO . NEW SHORTNESS OF BREATH NO . VITAL SIGNS WT 280.4 LBS, HT 52 IN, BMI 72.90 INDEX, BP 174/82 MM HG, HR 68 /MIN, RR 18 /MIN, TEMP 97.5 F, OXYGEN SAT % 98%, SAFE IN ENV? (Y/N) YES, NA INITIALS AW [id number].BROWN BRIGITTE, HAD COFFEE THIS MORNING. EXAMINATION GENERAL EXAMINATION: GENERALNO ACUTE DISTRESS, WELL NOURISHED AND HYDRATED. PSYCHAPPROPRIATE MOOD AND AFFECT . LUNGS:CLEAR TO AUSCULTATION BILATERALLY, NO WHEEZES, RHONCHI, RALES. HEART:NO MURMURS, REGULAR RATE AND RHYTHM. ASSESSMENTS INTERVERTEBRAL DISC DISORDERS WITH RADICULOPATHY, LUMBOSACRAL REGION - M51.17 (PRIMARY) TREATMENT INTERVERTEBRAL DISC DISORDERS WITH RADICULOPATHY, LUMBOSACRAL REGION REFILL MELOXICAM TABLET, 15 MG, 1 TABLET, ORALLY, ONCE A DAY, 90 DAY(S), 90 TABLET(S), REFILLS 1 NOTES: 50-YEAR-OLD FEMALE IN FOR CHRONIC PAIN FOLLOW-UP. GIVEN PRESENTING SYMPTOMS RECOMMEND CONTINUATION OF CURRENT MEDICATION REGIMEN WITH FOLLOW-UP IN 3 MONTHS. PATIENT HAS EXPRESSED UNDERSTANDING OF AND WAS IN AGREEMENT WITH TREATMENT PLAN. GIVEN TIME TO ASK QUESTIONS AND EXPRESS CONCERNS. PROCEDURE CODES FA211 ESTABILISHED PATIENT [facility] FACILITY CHARGE DISPOSITION & COMMUNICATION FOLLOW UP 3 MONTHS (REASON: BACK PAIN ) ELECTRONICALLY SIGNED BY WAN ELLINGTON ON 10/16/2020 AT 12:34 PM EDT DISCLAIMER : THIS IS A VISIT SUMMARY EXTRACTED FROM THE [employer] CHART. IT IS NOT A COPY OF THE [employer] PROGRESS NOTE. VIOLET
== END ==
LOC: M PAIN 09:30
PROVIDERS: ATTEND Family Medicine
DX: M51.17 Intervertebral disc disorders with radiculopathy, lumbosacral region (principal); G89.29 Other chronic pain; E03.9 Hypothyroidism, unspecified; Z86.59 Personal history of other mental and behavioral disorders; Z87.891 Personal history of nicotine dependence; Z88.0 Allergy status to penicillin; Z88.5 Allergy status to narcotic agent; Z88.8 Allergy status to other drugs, medicaments and biological substances; E66.01 Morbid (severe) obesity due to excess calories; Z68.45 Body mass index [BMI] 70 or greater, adult; Z79.899 Other long term (current) drug therapy

== ENCOUNTER → 2021-04-24 | Outpatient (REF) | payer OTHER ==
[~2021-04-24] MED LIST changes: -CITA40TA4; +CITA40TA7; +QUET1TAB17; +QUET1TAB17 PO; -QUET25TA3; -QUET25TA3 PO
== END ==
LOC: M SFHCPLAZ 13:05
PROVIDERS: ATTEND Physician Assistant
DX: R05.9 Cough, unspecified (principal)

== ENCOUNTER → 2021-05-11 | Outpatient (REF) | payer OTHER | LOC: M LAB REF 15:34 | PROVIDERS: ATTEND Physician Assistant | DX: R50.9 Fever, unspecified (principal); J02.9 Acute pharyngitis, unspecified | CPT/HCPCS: 87081; U0003 ==

== ENCOUNTER → 2021-05-13 | Outpatient (CLI) | payer OTHER | LOC: M LABSMTC 12:29 | PROVIDERS: ATTEND Pediatrics | DX: Z20.822 Contact with and (suspected) exposure to COVID-19 (principal) ==

== ENCOUNTER → 2021-05-22 | Outpatient (CLI) | payer OTHER | LOC: M PAIN 14:00 | PROVIDERS: ATTEND Nurse Practitioner Family | DX: M79.10 Myalgia, unspecified site (principal); E55.9 Vitamin D deficiency, unspecified; E03.9 Hypothyroidism, unspecified; Z86.59 Personal history of other mental and behavioral disorders; Z87.891 Personal history of nicotine dependence; Z88.0 Allergy status to penicillin; Z88.5 Allergy status to narcotic agent; Z88.8 Allergy status to other drugs, medicaments and biological substances; E66.01 Morbid (severe) obesity due to excess calories; Z68.45 Body mass index [BMI] 70 or greater, adult; Z79.899 Other long term (current) drug therapy ==

== ENCOUNTER → 2021-06-19 | Outpatient (CLI) | payer OTHER ==
[2021-06-19 13:07] LABS: HEMOGLOBIN 14.6 g/dl (12.0-15.5); MEAN CORPUSCULAR HEMOGLOBIN 29.5 pg (27.0-33.0); MEAN CORPUSCULAR HGB CONC 32.4 g/dl (32.0-36.5); MEAN CORPUSCULAR VOLUME 90.9 fl (80.0-96.0); PLATELET COUNT, AUTOMATED 211 10^3/uL (150-450); RED BLOOD COUNT 4.95 10^6/uL (4.00-5.40); WHITE BLOOD COUNT 7.3 10^3/uL (4.0-10.0)
[2021-06-19 13:36] LABS: ALBUMIN 4.2 GM/DL (3.2-5.2); BILIRUBIN,TOTAL 0.7 MG/DL (0.2-1.0); CALCIUM LEVEL 9.5 MG/DL (8.5-10.1); CHOLESTEROL RISK RATIO 3.825 (<5); CREATININE FOR GFR 1.11 MG/DL (0.55-1.30); PHOSPHORUS LEVEL 4.5 MG/DL (2.5-4.9); POTASSIUM SERUM 4.3 MEQ/L (3.5-5.1); TOTAL PROTEIN 7.3 GM/DL (6.4-8.2)
[2021-06-19 13:46] LABS: TOTAL 25(OH) VITAMIN D 59.6 NG/ML (30.0-100.0)
[2021-06-19 14:27] LABS: HEMOGLOBIN A1c 5.3 %
== END ==
LOC: M WUC 09:12
PROVIDERS: ATTEND Nurse Practitioner Psychiatric/Mental Health
DX: F31.81 Bipolar II disorder (principal)

== ENCOUNTER → 2021-07-27 | Outpatient (CLI) | payer OTHER ==
[~2021-07-27] MED LIST changes: +BUPR300T92 PO; +TIZA10TA PO
== END ==
LOC: M PAIN 14:30
PROVIDERS: ATTEND Nurse Practitioner Family
DX: M51.16 Intervertebral disc disorders with radiculopathy, lumbar region (principal); G89.29 Other chronic pain; E55.9 Vitamin D deficiency, unspecified; E03.9 Hypothyroidism, unspecified; Z86.59 Personal history of other mental and behavioral disorders; Z87.891 Personal history of nicotine dependence; Z88.0 Allergy status to penicillin; Z88.5 Allergy status to narcotic agent; Z88.8 Allergy status to other drugs, medicaments and biological substances; E66.01 Morbid (severe) obesity due to excess calories; Z68.45 Body mass index [BMI] 70 or greater, adult; Z79.899 Other long term (current) drug therapy

== ENCOUNTER 2021-08-05 01:53 | Emergency (ER) | payer OTHER ==
[~2021-08-05] VITALS: Ht 160 cm; Wt 124.6 kg
[~2021-08-05 01:53] MED LIST changes: -BUPR300T92 PO; -TIZA10TA PO
[2021-08-05] MEDS ORDERED: TIZA10TA PO (02:20)
[2021-08-05] MEDS ORDERED: BUPR300T92 PO (02:20)
[2021-08-05 04:13] LABS: BASO % 0.3 % (0.0-1.0); EOS # 0.2 10^3/uL (0.0-0.5); EOS % 2.8 % (0.0-3.0); HEMATOCRIT 42.8 % (36.0-47.0); HEMOGLOBIN 14.5 g/dl (12.0-15.5); LYMPH # 2.1 10^3/uL (1.5-5.0); LYMPH % 29.9 % (24.0-44.0); MEAN CORPUSCULAR HEMOGLOBIN 30.2 pg (27.0-33.0); MEAN CORPUSCULAR HGB CONC 33.9 g/dl (32.0-36.5); MEAN CORPUSCULAR VOLUME 89.2 fl (80.0-96.0); MONO # 0.5 10^3/uL (0.0-0.8); MONO % 6.6 % (2.0-8.0); NEUTROPHILS # 4.3 10^3/uL (1.5-8.5); PLATELET COUNT, AUTOMATED 194 10^3/uL (150-450); WHITE BLOOD COUNT 7.2 10^3/uL (4.0-10.0)
[2021-08-05 04:27] LABS: ALBUMIN 3.9 GM/DL (3.2-5.2); ALT/SGPT 54 U/L (12-78); BILIRUBIN,DIRECT < 0.1 MG/DL (0.0-0.2); BILIRUBIN,TOTAL 0.4 MG/DL (0.2-1.0); BLOOD UREA NITROGEN 18 MG/DL (7-18); CALCIUM LEVEL 9.4 MG/DL (8.5-10.1); CARBON DIOXIDE LEVEL 26 MEQ/L (21-32); CHLORIDE LEVEL 111 MEQ/L (98-107); CK-MB VALUE MASS < 1.0 NG/ML (<3.6); CPK CREATINE PHOSPHOKINASE 66 U/L (26-192); CREATININE FOR GFR 1.04 MG/DL (0.55-1.30); GLOMERULAR FILTRATION RATE 59.2 (>51); GLUCOSE, FASTING 102 MG/DL (70-100); MB/CK RELATIVE INDEX 1.52 (< OR =4); NT-PRO BNP 209 PG/ML (<125); SODIUM LEVEL 143 MEQ/L (136-145)
[2021-08-05 04:57] LABS: VENOUS PH 7.297 UNITS (7.330-7.430)
[2021-08-05 04:58] LABS: VENOUS BASE EXCESS -4.9 (-2.0-2.0); VENOUS HCO3 21.6 MEQ/L (23.0-27.0); VENOUS O2 SATURATION 78.8 % (60.0-80.0); VENOUS PARTIAL PRESSURE CO2 45.3 mmHg (38.0-50.0); VENOUS PARTIAL PRESSURE O2 43.8 mmHg (30.0-50.0)
[2021-08-05 05:10] LABS: CK-MB VALUE MASS < 1.0 NG/ML (<3.6); CPK CREATINE PHOSPHOKINASE 75 U/L (26-192); MB/CK RELATIVE INDEX 1.33 (< OR =4)
[2021-08-05 07:11] LABS: T UPTAKE 37 % (30-39); THYROXINE (T4) 10.7 UG/DL (4.5-12.0)
[2021-08-05 07:42] VITALS: BP 132/66
== END 2021-08-05 07:43 | disposition home or self-care (01) ==
LOC: M ED 01:53
DX: R00.2 Palpitations (principal); R06.02 Shortness of breath; R07.9 Chest pain, unspecified; I10 Essential (primary) hypertension; G47.33 Obstructive sleep apnea (adult) (pediatric); E03.9 Hypothyroidism, unspecified; Z88.0 Allergy status to penicillin; Z88.8 Allergy status to other drugs, medicaments and biological substances; Z79.899 Other long term (current) drug therapy; Z79.890 Hormone replacement therapy

== ENCOUNTER → 2021-09-10 | Outpatient (REF) | payer OTHER ==
[~2021-09-10] MED LIST changes: +BUPR300T92 PO; +TIZA10TA PO
== END ==
LOC: M SFHCADAM 12:54
PROVIDERS: ATTEND Physician Assistant
DX: Z12.4 Encounter for screening for malignant neoplasm of cervix (principal)

== ENCOUNTER 2021-10-27 07:18 | Day surgery (SDC) | payer OTHER ==
[~2021-10-27] VITALS: Ht 160 cm; Wt 123.8 kg
[~2021-10-27 07:18] MED LIST changes: +LITH45TASA PO; +NS 1,000 ML IV ONE
[2021-10-27] MEDS ORDERED: fentaNYL 100 MCG/2 ML INJECTION As Ordered ONE (07:27)
[2021-10-27] MEDS ORDERED: LIDOCAINE 2% 100MG/5ML SDV (FOR ANES.) As Ordered ONE (07:27)
[2021-10-27] MEDS ORDERED: propofoL 500 MG/50 ML VIAL As Ordered ONE (07:27)
[2021-10-27] MEDS ORDERED: propofoL 200 MG/20 ML VIAL As Ordered ONE (08:56)
[2021-10-27 09:28] VITALS: BP 165/93
== END 2021-10-27 09:30 | disposition home or self-care (01) ==
LOC: M OPP 07:18
PROVIDERS: ATTEND Internal Medicine Gastroenterology
DX: Z12.11 Encounter for screening for malignant neoplasm of colon (principal); E66.01 Morbid (severe) obesity due to excess calories; K29.50 Unspecified chronic gastritis without bleeding; K64.8 Other hemorrhoids; K31.89 Other diseases of stomach and duodenum; I10 Essential (primary) hypertension; E03.9 Hypothyroidism, unspecified; K21.9 Gastro-esophageal reflux disease without esophagitis; F41.9 Anxiety disorder, unspecified; F31.9 Bipolar disorder, unspecified; G47.30 Sleep apnea, unspecified; Z88.0 Allergy status to penicillin; Z88.8 Allergy status to other drugs, medicaments and biological substances; Z79.899 Other long term (current) drug therapy
CPT/HCPCS: 43239; 43251; 45378; 88305; J3010

== ENCOUNTER → 2021-11-06 | Outpatient (CLI) | payer OTHER ==
[~2021-11-06] MED LIST changes: -NS 1,000 ML IV ONE
== END ==
LOC: M WHC 09:14
PROVIDERS: ATTEND Physician Assistant
DX: Z12.31 Encounter for screening mammogram for malignant neoplasm of breast (principal)

== ENCOUNTER → 2022-06-08 | Outpatient (CLI) | payer OTHER | LOC: M PAIN 14:15 | PROVIDERS: ATTEND Nurse Practitioner Family | DX: M51.16 Intervertebral disc disorders with radiculopathy, lumbar region (principal); G89.29 Other chronic pain; I10 Essential (primary) hypertension; E03.9 Hypothyroidism, unspecified; Z86.59 Personal history of other mental and behavioral disorders; Z87.891 Personal history of nicotine dependence; Z88.0 Allergy status to penicillin; Z88.5 Allergy status to narcotic agent; Z88.8 Allergy status to other drugs, medicaments and biological substances; E66.01 Morbid (severe) obesity due to excess calories; Z68.45 Body mass index [BMI] 70 or greater, adult; Z79.890 Hormone replacement therapy; Z79.899 Other long term (current) drug therapy ==

== ENCOUNTER → 2022-08-03 | Outpatient (CLI) | payer OTHER | LOC: M EKG 08:59 | PROVIDERS: ATTEND Nurse Practitioner Psychiatric/Mental Health | DX: F41.1 Generalized anxiety disorder (principal) ==

== ENCOUNTER → 2022-08-03 | Outpatient (CLI) | payer OTHER ==
[2022-08-03 10:03] LABS: BASO % 0.3 % (0.0-1.0); EOS % 0.2 % (0.0-3.0); HEMATOCRIT 44.9 % (36.0-47.0); LYMPH # 1.6 10^3/uL (1.5-5.0); LYMPH % 26.7 % (24.0-44.0); MEAN CORPUSCULAR HEMOGLOBIN 29.4 pg (27.0-33.0); MEAN CORPUSCULAR HGB CONC 33.4 g/dl (32.0-36.5); MONO # 0.4 10^3/uL (0.0-0.8); MONO % 7.4 % (2.0-8.0); NEUTROPHILS # 3.8 10^3/uL (1.5-8.5); NEUTROPHILS % 64.7 % (36.0-66.0); PLATELET COUNT, AUTOMATED 172 10^3/uL (150-450); WHITE BLOOD COUNT 5.9 10^3/uL (4.0-10.0)
[2022-08-03 10:21] LABS: ALBUMIN 3.9 G/DL (3.2-5.2); BILIRUBIN,TOTAL 0.6 MG/DL (0.3-1.2); CALCIUM LEVEL 8.9 MG/DL (8.5-10.1); CHOLESTEROL RISK RATIO 3.42 (<5); CREATININE FOR GFR 1.05 MG/DL (0.55-1.30); GLOMERULAR FILTRATION RATE 58.4 (>51); HDL CHOLESTEROL 41.7 MG/DL (>40); LDL CHOLESTEROL 78.7 MG/DL (<100); NON-HDL-C 101.3 MG/DL; POTASSIUM SERUM 4.3 MMOL/L (3.5-5.1)
[2022-08-03 10:31] LABS: FERRITIN 53.3 NG/ML (7.3-270.7)
[2022-08-03 10:32] LABS: FOLATE 6.6 NG/ML (>5.4)
[2022-08-03 10:34] LABS: TOTAL 25(OH) VITAMIN D 27.9 NG/ML (20.0-100.0)
[2022-08-03 10:48] LABS: HEMOGLOBIN A1c 5.1 % (4.0-6.0)
== END ==
LOC: M LAB 08:50
PROVIDERS: ATTEND Physician Assistant
DX: E03.9 Hypothyroidism, unspecified (principal); I10 Essential (primary) hypertension; Z13.1 Encounter for screening for diabetes mellitus; E66.01 Morbid (severe) obesity due to excess calories; E55.9 Vitamin D deficiency, unspecified; G47.10 Hypersomnia, unspecified

== ENCOUNTER → 2022-11-24 | Outpatient (CLI) | payer OTHER | LOC: M WHC 12:27 | PROVIDERS: ATTEND Physician Assistant | DX: Z12.31 Encounter for screening mammogram for malignant neoplasm of breast (principal) ==

== ENCOUNTER → 2022-12-02 | Outpatient (CLI) | payer OTHER | LOC: M PAIN 15:00 | PROVIDERS: ATTEND Nurse Practitioner Family | DX: M46.1 Sacroiliitis, not elsewhere classified (principal); G89.29 Other chronic pain; I10 Essential (primary) hypertension; E03.9 Hypothyroidism, unspecified; Z87.891 Personal history of nicotine dependence; Z88.0 Allergy status to penicillin; Z88.5 Allergy status to narcotic agent; Z88.8 Allergy status to other drugs, medicaments and biological substances; E66.01 Morbid (severe) obesity due to excess calories; Z68.44 Body mass index [BMI] 60.0-69.9, adult; Z79.890 Hormone replacement therapy; Z79.899 Other long term (current) drug therapy ==

== ENCOUNTER → 2023-06-07 | Outpatient (CLI) | payer OTHER | LOC: M PAIN 16:30 | PROVIDERS: ATTEND Nurse Practitioner Family | DX: M46.1 Sacroiliitis, not elsewhere classified (principal); G89.29 Other chronic pain; E55.9 Vitamin D deficiency, unspecified; E66.01 Morbid (severe) obesity due to excess calories; Z68.42 Body mass index [BMI] 45.0-49.9, adult; I10 Essential (primary) hypertension; E03.9 Hypothyroidism, unspecified; F31.9 Bipolar disorder, unspecified; Z87.891 Personal history of nicotine dependence; Z79.890 Hormone replacement therapy; Z79.899 Other long term (current) drug therapy; Z88.0 Allergy status to penicillin; Z88.5 Allergy status to narcotic agent; Z88.8 Allergy status to other drugs, medicaments and biological substances ==

== ENCOUNTER → 2023-06-07 | Outpatient (CLI) | payer OTHER | LOC: M RAD 16:58 | PROVIDERS: ATTEND Nurse Practitioner Family | DX: M46.1 Sacroiliitis, not elsewhere classified (principal) ==

== ENCOUNTER → 2023-10-07 | Outpatient (CLI) | payer OTHER ==
[~2023-10-07] MED LIST changes: +BUPR-597 PO; -BUPR300T92 PO
== END ==
LOC: M WUC 11:49
PROVIDERS: ATTEND Physician Assistant
DX: J40 Bronchitis, not specified as acute or chronic (principal)

== ENCOUNTER → 2023-10-18 | Outpatient (CLI) | payer OTHER | LOC: M PAIN 14:45 | PROVIDERS: ATTEND Nurse Practitioner Family | DX: M46.1 Sacroiliitis, not elsewhere classified (principal); G89.29 Other chronic pain; E55.9 Vitamin D deficiency, unspecified; E66.01 Morbid (severe) obesity due to excess calories; Z68.42 Body mass index [BMI] 45.0-49.9, adult; I10 Essential (primary) hypertension; E03.9 Hypothyroidism, unspecified; F31.9 Bipolar disorder, unspecified; Z87.891 Personal history of nicotine dependence; Z79.890 Hormone replacement therapy; Z79.899 Other long term (current) drug therapy; Z88.0 Allergy status to penicillin; Z88.5 Allergy status to narcotic agent; Z88.8 Allergy status to other drugs, medicaments and biological substances ==

== ENCOUNTER → 2023-11-04 | Outpatient (CLI) | payer OTHER | LOC: M WHC 16:27 | PROVIDERS: ATTEND Physician Assistant | DX: Z53.9 Procedure and treatment not carried out, unspecified reason (principal) ==

== ENCOUNTER → 2023-11-09 | Outpatient (CLI) | payer OTHER | LOC: M RAD 08:47 | PROVIDERS: ATTEND Nurse Practitioner Family | DX: M46.1 Sacroiliitis, not elsewhere classified (principal); M47.898 Other spondylosis, sacral and sacrococcygeal region ==

== ENCOUNTER → 2023-11-24 | Outpatient (CLI) | payer OTHER | LOC: M PAIN 14:30 | PROVIDERS: ATTEND Nurse Practitioner Family | DX: M46.1 Sacroiliitis, not elsewhere classified (principal); G89.29 Other chronic pain; E55.9 Vitamin D deficiency, unspecified; E66.01 Morbid (severe) obesity due to excess calories; Z68.42 Body mass index [BMI] 45.0-49.9, adult; I10 Essential (primary) hypertension; E03.9 Hypothyroidism, unspecified; F31.9 Bipolar disorder, unspecified; M51.36 Other intervertebral disc degeneration, lumbar region; M47.816 Spondylosis without myelopathy or radiculopathy, lumbar region; Z87.891 Personal history of nicotine dependence; Z79.890 Hormone replacement therapy; Z79.899 Other long term (current) drug therapy; Z88.0 Allergy status to penicillin; Z88.5 Allergy status to narcotic agent; Z88.8 Allergy status to other drugs, medicaments and biological substances ==

== ENCOUNTER → 2024-01-03 | Outpatient (CLI) | payer OTHER ==
[2024-01-03 17:28] LABS: BASO % 0.2 % (0.0-1.0); EOS % 0.2 % (0.0-3.0); HEMATOCRIT 45.6 % (36.0-47.0); HEMOGLOBIN 14.9 g/dl (12.0-15.5); LYMPH # 1.4 10^3/uL (1.5-5.0); LYMPH % 22.8 % (24.0-44.0); MEAN CORPUSCULAR HEMOGLOBIN 29.4 pg (27.0-33.0); MEAN CORPUSCULAR HGB CONC 32.7 g/dl (32.0-36.5); MEAN CORPUSCULAR VOLUME 90.1 fl (80.0-96.0); MONO # 0.4 10^3/uL (0.0-0.8); MONO % 6.9 % (2.0-8.0); NEUTROPHILS # 4.1 10^3/uL (1.5-8.5); NEUTROPHILS % 69.1 % (36.0-66.0); PLATELET COUNT, AUTOMATED 181 10^3/uL (150-450); RED BLOOD COUNT 5.06 10^6/uL (4.00-5.40)
[2024-01-03 17:55] LABS: THYROID STIMULATING HORMONE 2.683 uIU/ML (0.55-4.78)
[2024-01-03 17:56] LABS: ALBUMIN 3.9 G/DL (3.2-5.2); ALKALINE PHOSPHATASE 94 U/L (46-116); ALT/SGPT 115 U/L (7.0-40); AST/SGOT 109 U/L (<34); BILIRUBIN,TOTAL 0.7 MG/DL (0.3-1.2); BLOOD UREA NITROGEN 15 MG/DL (9-23); CALCIUM LEVEL 9.4 MG/DL (8.5-10.1); CARBON DIOXIDE LEVEL 26 MMOL/L (20-31); CHLORIDE LEVEL 109 MMOL/L (98-107); CHOLESTEROL LEVEL 143 MG/DL (<200); CREATININE FOR GFR 0.97 MG/DL (0.55-1.30); FREE T4 1.28 NG/DL (0.89-1.76); GLOMERULAR FILTRATION RATE > 60.0 (>51); GLUCOSE, FASTING 209 MG/DL (60-100); HDL CHOLESTEROL 33.2 MG/DL (>40); LDL CHOLESTEROL 75.4 MG/DL (<100); NON-HDL-C 109.8 MG/DL; POTASSIUM SERUM 4.3 MMOL/L (3.5-5.1); SODIUM LEVEL 141 MMOL/L (136-145); TOTAL PROTEIN 7.3 G/DL (5.7-8.2); TRIGLYCERIDES LEVEL 172 MG/DL (<150)
[2024-01-03 18:03] LABS: HEMOGLOBIN A1c 7.3 % (4.0-6.0)
== END ==
LOC: M WUC 11:50
PROVIDERS: ATTEND Physician Assistant
DX: I10 Essential (primary) hypertension (principal); E66.01 Morbid (severe) obesity due to excess calories; G47.33 Obstructive sleep apnea (adult) (pediatric); E03.9 Hypothyroidism, unspecified; M54.41 Lumbago with sciatica, right side; F31.9 Bipolar disorder, unspecified; Z13.1 Encounter for screening for diabetes mellitus

== ENCOUNTER → 2024-01-04 | Outpatient (REF) | payer OTHER | LOC: M SFHCADAM 15:44 | PROVIDERS: ATTEND Physician Assistant | DX: R74.8 Abnormal levels of other serum enzymes (principal); R25.1 Tremor, unspecified ==

== ENCOUNTER → 2024-01-18 | Outpatient (CLI) | payer OTHER ==
[~2024-01-18] MED LIST changes: +GABA-1172; +GABA-1172 PO; -GABA-282; -GABA-282 PO; +LITH450T11 PO; -LITH45TASA PO; -OLAN2.5T25 PO; +OLAN2.5T53 PO
[2024-01-18 16:55] LABS: LITHIUM LEVEL 0.22 MMOL/L (1.0-1.20)
[2024-01-18 16:56] LABS: HEPATITIS B SURFACE ANTIBODY NEGATIVE (POSITIVE)
[2024-01-18 16:57] LABS: FERRITIN 230.9 NG/ML (7.3-270.7)
[2024-01-18 17:08] LABS: HEPATITIS B SURFACE ANTIGEN NEGATIVE (NEGATIVE)
[2024-01-18 17:28] LABS: HEPATITIS C VIRUS ABY INDEX 0.09 INDEX (<0.8)
[2024-01-20 10:12] LABS: HEPATITIS B CORE ANTIBODY IGG NON-REACTIVE (NON-REACTIVE)
[2024-01-20 16:03] LABS: ANA PATTERN Nuclear, Homogeneous (NEGATIVE); ANA SCREEN, IFA POSITIVE (NEGATIVE); ANA TITER 1:40 titer (<1:40)
== END ==
LOC: M WUC 10:55
PROVIDERS: ATTEND Physician Assistant
DX: R74.8 Abnormal levels of other serum enzymes (principal); R25.1 Tremor, unspecified

== ENCOUNTER → 2024-01-20 | Outpatient (CLI) | payer OTHER ==
[~2024-01-20] MED LIST changes: +ISOVUE-M 300 61% 15ML VIAL As Ordered ONE; +LIDOCAINE 1% SDV 30ML VIAL As Ordered ONE; +TRIAMCINOLONE ACETONIDE SUSP 40MG/ML 1ML VIAL As Ordered ONE
== END ==
LOC: M PAIN 15:00
PROVIDERS: ATTEND Anesthesiology
DX: M46.1 Sacroiliitis, not elsewhere classified (principal); G89.29 Other chronic pain; E55.9 Vitamin D deficiency, unspecified; E66.01 Morbid (severe) obesity due to excess calories; M19.90 Unspecified osteoarthritis, unspecified site; I10 Essential (primary) hypertension; E03.9 Hypothyroidism, unspecified; F31.9 Bipolar disorder, unspecified; G47.33 Obstructive sleep apnea (adult) (pediatric); E11.9 Type 2 diabetes mellitus without complications; Z68.45 Body mass index [BMI] 70 or greater, adult; Z87.891 Personal history of nicotine dependence; Z79.890 Hormone replacement therapy; Z79.899 Other long term (current) drug therapy; Z88.0 Allergy status to penicillin; Z88.5 Allergy status to narcotic agent; Z88.8 Allergy status to other drugs, medicaments and biological substances
CPT/HCPCS: 27096; J0665; J3301; Q9967

== ENCOUNTER → 2024-01-31 | Outpatient (CLI) | payer OTHER ==
[~2024-01-31] MED LIST changes: -ISOVUE-M 300 61% 15ML VIAL As Ordered ONE; -LIDOCAINE 1% SDV 30ML VIAL As Ordered ONE; -TRIAMCINOLONE ACETONIDE SUSP 40MG/ML 1ML VIAL As Ordered ONE
== END ==
LOC: M WHC 08:02
PROVIDERS: ATTEND Physician Assistant
DX: R74.8 Abnormal levels of other serum enzymes (principal)

== ENCOUNTER → 2024-06-13 | Outpatient (REF) | payer OTHER ==
[~2024-06-13] MED LIST changes: -CELE50CA PO; +CELE50CA17 PO
[2024-06-13 14:34] LABS: BASO % 0.3 % (0.0-1.0); EOS # 0.1 10^3/uL (0.0-0.5); EOS % 2.2 % (0.0-3.0); HEMATOCRIT 46.1 % (36.0-47.0); HEMOGLOBIN 15.1 g/dl (12.0-15.5); LYMPH # 1.3 10^3/uL (1.5-5.0); LYMPH % 20.2 % (24.0-44.0); MEAN CORPUSCULAR HEMOGLOBIN 29.7 pg (27.0-33.0); MEAN CORPUSCULAR HGB CONC 32.8 g/dl (32.0-36.5); MEAN CORPUSCULAR VOLUME 90.7 fl (80.0-96.0); MONO # 0.4 10^3/uL (0.0-0.8); MONO % 5.5 % (2.0-8.0); NEUTROPHILS # 4.6 10^3/uL (1.5-8.5); NEUTROPHILS % 71.2 % (36.0-66.0); PLATELET COUNT, AUTOMATED 215 10^3/uL (150-450); RED BLOOD COUNT 5.08 10^6/uL (4.00-5.40); WHITE BLOOD COUNT 6.4 10^3/uL (4.0-10.0)
[2024-06-13 14:36] LABS: ALBUMIN 3.8 G/DL (3.2-5.2); BILIRUBIN,TOTAL 0.7 MG/DL (0.3-1.2); CALCIUM LEVEL 8.9 MG/DL (8.5-10.1); CREATININE FOR GFR 1.06 MG/DL (0.55-1.30); GLOMERULAR FILTRATION RATE 57.3 (>51); POTASSIUM SERUM 4.3 MMOL/L (3.5-5.1); TOTAL PROTEIN 7.1 G/DL (5.7-8.2)
[2024-06-13 15:09] LABS: HEMOGLOBIN A1c 4.9 % (4.0-6.0)
== END ==
LOC: M SFHCADAM 10:25
PROVIDERS: ATTEND Physician Assistant
DX: E11.9 Type 2 diabetes mellitus without complications (principal); E66.01 Morbid (severe) obesity due to excess calories; R14.0 Abdominal distension (gaseous); K76.0 Fatty (change of) liver, not elsewhere classified

== ENCOUNTER → 2024-06-14 | Outpatient (CLI) | payer BC, OTHER ==
[~2024-06-14] MED LIST changes: +ISOVUE-370 76% 100ML VIAL As Ordered ONE
== END ==
LOC: M RAD 09:08
PROVIDERS: ATTEND Physician Assistant
DX: R14.0 Abdominal distension (gaseous) (principal); R74.8 Abnormal levels of other serum enzymes; Z90.49 Acquired absence of other specified parts of digestive tract
CPT/HCPCS: 74177; Q9967

== ENCOUNTER → 2024-07-18 | Outpatient (CLI) | payer OTHER ==
[~2024-07-18] MED LIST changes: -ISOVUE-370 76% 100ML VIAL As Ordered ONE
== END ==
LOC: M WHC 15:23
PROVIDERS: ATTEND Physician Assistant
DX: Z12.31 Encounter for screening mammogram for malignant neoplasm of breast (principal); Z53.9 Procedure and treatment not carried out, unspecified reason

== ENCOUNTER → 2024-10-15 | Outpatient (CLI) | payer BC, OTHER ==
[~2024-10-15] MED LIST changes: -BUPR-597 PO; +BUPR-766 PO; -LITH450T11 PO; +LITH450T17 PO
== END ==
LOC: M WHC 10:51
PROVIDERS: ATTEND Physician Assistant
DX: Z12.31 Encounter for screening mammogram for malignant neoplasm of breast (principal)

== ENCOUNTER → 2025-01-22 | Outpatient (REF) | payer OTHER ==
[2025-01-24 15:48] LABS: HPV APTIMA Not Detected (Not Detected)
== END ==
LOC: M SFHCADAM 18:34
PROVIDERS: ATTEND Physician Assistant
DX: Z12.4 Encounter for screening for malignant neoplasm of cervix (principal); R87.610 Atypical squamous cells of undetermined significance on cytologic smear of cervix (ASC-US)